=== PATIENT | male | born 1985 | race Caucasian/White ===

== ENCOUNTER 2016-09-27 11:14 | Emergency (ER) | payer SELFPAY ==
[2016-09-27] MEDS ORDERED: IBUPROFEN 800 MG TABLET PO ONE (11:42)
[2016-09-27 12:06] LABS: APPEARANCE,URINE CLEAR; BILIRUBIN,URINE NEGATIVE (NEGATIVE); GLUCOSE, URINE NEGATIVE (NEGATIVE); KETONES,URINE NEGATIVE (NEGATIVE); LEUKOCYTE ESTERASE,URINE NEGATIVE (NEGATIVE); NITRITE,URINE NEGATIVE (NEGATIVE); PROTEIN,URINE NEGATIVE (NEGATIVE); URINE SPECIFIC GRAVITY 1.014; UROBILINOGEN,URINE NEGATIVE mg/dL (<2.0)
--- NOTE | 2016-09-27 12:44 | ER Document Report ---
HPI - HPI Patient complains to provider of: right-sided back pain Onset: Other Onset/Duration: Intermittent Quality of pain: Achy Severity: Severe Pain Level: 5 Context: Patient states he has had intermittent back pain for a while, but states the right side has been bothering him more for the last 4 days. 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 Denies any other kind of injury. Denies loss of control of bowels or bladder. Associated Symptoms: None Exacerbated by: Movement Relieved by: Denies Similar symptoms previously: Yes Recently seen / treated by doctor: No Notes: It was noted when initially interviewing patient he was able to lift and raise both arms and move around on the bed without any difficulty or pain voiced when he was describing how and where his back hurts. - ROS ROS below otherwise negative: Yes Systems Reviewed and Negative: Yes All other systems reviewed and negative - CONSTITUTIONAL Constitutional: DENIES: Fever - EENT EENT: DENIES: Congestion - NEURO Neurology: DENIES: Headache - CARDIOVASCULAR Cardiovascular: DENIES: Chest pain - RESPIRATORY Respiratory: DENIES: Trouble Breathing - GASTROINTESTINAL Gastrointestinal: DENIES: Abdominal Pain - URINARY Urinary: DENIES: Dysuria - REPRODUCTIVE Reproductive: DENIES: : - MUSCULOSKELETAL Musculoskeletal: REPORTS: Back Pain - DERM Skin Color: Normal Skin Problems: None Past Medical History - General Information source: Patient - Social History Smoking Status: Current Every Day Smoker Chew tobacco use (# tins/day): No Frequency of alcohol use: Occasional Drug Abuse: None Lives with: Family Family History: Reviewed & Not Pertinent Patient has suicidal ideation: No Patient has homicidal ideation: No Pulmonary Medical History: Reports: Hx Asthma Denies: Hx Tuberculosis Renal/ Medical History: Denies: Hx Peritoneal Dialysis Skin Medical History: Reports Hx Cellulitis, Reports Hx MRSA Infectious Medical History: Reports: Hx MRSA Past Surgical History: Reports: Hx Oral Surgery, Hx Orthopedic Surgery - right shoulder - Immunizations Immunizations up to date: Yes Hx Diphtheria, Pertussis, Tetanus Vaccination: Yes - unknown last Vertical Provider Document - CONSTITUTIONAL Agree With Documented VS: Yes Exam Limitations: No Limitations General Appearance: WD/WN, No Apparent Distress - INFECTION CONTROL TRAVEL OUTSIDE OF THE [place] IN LAST 30 DAYS: No - HEENT HEENT: Atraumatic, Normocephalic - NECK Neck: Normal Inspection, Supple - RESPIRATORY Respiratory: Breath Sounds Normal, No Respiratory Distress O2 Sat by Pulse Oximetry: 100 - CARDIOVASCULAR Cardiovascular: Regular Rate, Regular Rhythm - GI/ABDOMEN Gastrointestinal: Abdomen Soft, Abdomen Non-Tender, Normal Bowel Sounds - MUSCULOSKELETAL/EXTREMETIES Musculoskeletal/Extremeties: MAEW, FROM, Tender - Mild tenderness noted to L- spine and right lumbar paraspinous muscles. Negative leg raises - NEURO Level of Consciousness: Awake, Alert, Appropriate - DERM Integumentary: Warm, Dry, No Rash Course - Vital Signs Vital signs: Temp Pulse Resp BP Pulse Ox 98.7 F 112 H 18 147/77 H 100 09/27/16 11:19 09/27/16 11:19 09/27/16 11:19 09/27/16 11:19 09/27/16 11:19 Discharge - Discharge Clinical Impression: Right-sided low back pain without sciatica Qualifiers: Chronicity: unspecified Qualified Code(s): M54.5 - Low back pain Condition: Good Disposition: HOME, SELF-CARE Instructions: Warm Packs ([facility]), Ice Packs ([facility]), Low Back Pain ([facility]) Additional Instructions: Meds as prescribed Take [id number] Motrin 3 times a day to help with pain Ice or heat packs Follow-up with your doctor if not better in 1 week Return as needed Prescriptions: Cyclobenzaprine HCl [Flexeril] 5 mg PO TID #15 tablet Tramadol HCl 50 mg PO PRN PRN #15 tablet PRN Reason:
[2016-09-27 13:07] VITALS: BP 149/58
[2016-09-27 13:19] LABS: URINE BARBITURATES SCREEN NEGATIVE; URINE METHADONE SCREEN NEGATIVE; URINE OPIATES LOW NEGATIVE; URINE PHENCYCLIDINE SCREEN NEGATIVE
== END 2016-09-27 13:07 | disposition home or self-care (01) ==
LOC: ER 11:14
DX: M54.5 Low back pain (principal); M54.9 Dorsalgia, unspecified; F17.200 Nicotine dependence, unspecified, uncomplicated
CPT/HCPCS: 72110; 80307; 81001; 99283

== ENCOUNTER 2016-10-17 07:57 | Emergency (ER) | payer SELFPAY ==
[2016-10-17 08:29] VITALS: BP 128/91
[2016-10-17] MEDS ORDERED: SULFAMETHOXAZOLE/TRIMETHOPRIM 800-160 MG TABLET PO ONE (09:38)
[2016-10-17] MEDS ORDERED: OXYCODONE-ACETAMINOPHEN 5-325 MG TABLET PO ONE (09:38)
--- NOTE | 2016-10-17 10:24 | ER Document Report ---
ED General - General Chief Complaint: Abscess Stated Complaint: BACK PAIN Time Seen by Provider: 10/17/16 08:45 TRAVEL OUTSIDE OF THE [place] IN LAST 30 DAYS: No - HPI Patient complains to provider of: abscess right scapular region Notes: Patient coming in complaining of right upper back pain due to an abscess. Patient states she has a history of MRSA in the past. Patient denies any other complaints fevers chills nausea vomiting. Patient denies any recent antibiotic use. Patient does have a looks to be an abscess in the right upper scapular region above the supraspinatus - Related Data Allergies/Adverse Reactions: hydrocodone bitartrate [From Vicodin] Allergy (Mild, Verified 09/27/16 11:17) upset stomach/hives/rash Past Medical History - Social History Smoking Status: Current Every Day Smoker Chew tobacco use (# tins/day): No Frequency of alcohol use: None Drug Abuse: None Family History: Reviewed & Not Pertinent Patient has suicidal ideation: No Patient has homicidal ideation: No Pulmonary Medical History: Reports: Hx Asthma Denies: Hx Tuberculosis Renal/ Medical History: Denies: Hx Peritoneal Dialysis Skin Medical History: Reports Hx Cellulitis, Reports Hx MRSA Infectious Medical History: Reports: Hx MRSA Past Surgical History: Reports: Hx Oral Surgery, Hx Orthopedic Surgery - right shoulder - Immunizations Immunizations up to date: Yes Hx Diphtheria, Pertussis, Tetanus Vaccination: Yes - unknown last Review of Systems - Review of Systems Constitutional: No symptoms reported EENT: No symptoms reported Cardiovascular: No symptoms reported Respiratory: No symptoms reported Gastrointestinal: No symptoms reported Genitourinary: No symptoms reported Male Genitourinary: No symptoms reported Musculoskeletal: No symptoms reported Skin: Other - Abscess Hematologic/Lymphatic: No symptoms reported Neurological/Psychological: No symptoms reported Physical Exam - Vital signs Vitals: Temp Pulse Resp BP Pulse Ox 97.6 F 98 16 128/91 H 99 10/17/16 08:02 10/17/16 08:02 10/17/16 08:02 10/17/16 08:02 10/17/16 08:02 Interpretation: Normal - General General appearance: Appears well, Alert - HEENT Head: Normocephalic, Atraumatic Eyes: Normal Pupils: PERRL - Respiratory Respiratory status: No respiratory distress Chest status: Nontender Breath sounds: Normal Chest palpation: Normal - Cardiovascular Rhythm: Regular Heart sounds: Normal auscultation Murmur: No - Abdominal Inspection: Normal Distension: No distension Bowel sounds: Normal Tenderness: Nontender Organomegaly: No organomegaly - Back Back: Normal, Nontender - Extremities General upper extremity: Normal inspection, Nontender, Normal color, Normal ROM , Normal temperature General lower extremity: Normal inspection, Nontender, Normal color, Normal ROM , Normal temperature, Normal weight bearing. No: Juancho's sign - Neurological Neuro grossly intact: Yes Cognition: Normal Orientation: AAOx4 [place] Coma Scale Eye Opening: Spontaneous [place] Coma Scale Verbal: Oriented [place] Coma Scale Motor: Obeys Commands [place] Coma Scale Total: 15 Speech: Normal Motor strength normal: LUE, RUE, LLE, RLE Sensory: Normal - Psychological Associated symptoms: Normal affect, Normal mood - Skin Skin Temperature: Warm - Patient with an abscess to the right scapula Skin Moisture: Dry Skin Color: Normal Course - Re-evaluation Re-evalutation: 10/17/16 15:19 Bedside ultrasound did confirm abscess formation I and D was performed. Patient during I and D requested that we look at his throat however upon reevaluation patient had left the ER without his discharge papers - Vital Signs Vital signs: Temp Pulse Resp BP Pulse Ox 98.4 F 98 16 128/91 H 99 10/17/16 10:47 10/17/16 08:02 10/17/16 08:02 10/17/16 08:02 10/17/16 08:02 Procedures - Incision and Drainage Right Back Type: Simple Anesthetic type: 1% Lidocaine mL's of anesthetic: 2 Blade size: 11 Incision Method: Incision made by scalpel Amount/type of drainage: 2 mL of pus Discharge - Discharge Clinical Impression: Abscess Condition: Good Disposition: HOME, SELF-CARE Instructions: Oral Narcotic Medication ([facility]), Trimethoprim-Sulfa ([facility]), Abscess ([facility]) Additional Instructions: Take antibiotics as prescribed. Follow-up with your primary care physician return to the ER symptoms worsen. Prescriptions: Oxycodone HCl/Acetaminophen [Percocet 5-325 mg Tablet] 1 - 2 tab PO Q4H PRN #15 tablet PRN Reason: Sulfamethoxazole/Trimethoprim [Bactrim Ds Tablet] 1 each PO BID #14 tablet Forms: Return to Work
== END 2016-10-17 10:47 | disposition home or self-care (01) ==
LOC: ER 07:57
PROC: 0H96XZZ Drainage of Back Skin, External Approach (ICD-10-PCS; principal; 2016-10-17)
DX: L02.212 Cutaneous abscess of back [any part, except buttock and flank] (principal); F17.200 Nicotine dependence, unspecified, uncomplicated; J45.909 Unspecified asthma, uncomplicated; Z86.14 Personal history of Methicillin resistant Staphylococcus aureus infection; Z88.5 Allergy status to narcotic agent
CPT/HCPCS: 87070; 87205; 99283

== ENCOUNTER 2017-02-15 11:48 | Emergency (ER) | payer SELFPAY ==
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
[2017-02-15 13:53] VITALS: BP 104/85
== END 2017-02-15 13:54 | disposition home or self-care (01) ==
LOC: ER 11:48
DX: K08.9 Disorder of teeth and supporting structures, unspecified (principal); L08.9 Local infection of the skin and subcutaneous tissue, unspecified; F17.210 Nicotine dependence, cigarettes, uncomplicated; Z86.14 Personal history of Methicillin resistant Staphylococcus aureus infection
CPT/HCPCS: 99283

== ENCOUNTER 2017-05-01 14:27 | Emergency (ER) | payer SELFPAY ==
[2017-05-01 14:31] VITALS: BP 143/74
[2017-05-01] MEDS ORDERED: CEPHALEXIN 500 MG CAPSULE PO ONE (15:19)
[2017-05-01] MEDS ORDERED: IBUPROFEN 800 MG TABLET PO ONE (15:20)
--- NOTE | 2017-05-01 15:20 | ER Document Report ---
HPI - HPI Patient complains to provider of: Skin complaint Pain Level: 5 Context: Patient is a 31-year-old male who presents emergency department complaining of site on his right elbow that is tender and red. Patient states he has a history of abscesses and wanted this to be evaluated. States he thought it was a bug bite originally but denies using any Neosporin, warm compresses. Denies any drainage from the site. - REPRODUCTIVE Reproductive: DENIES: : Past Medical History - Social History Smoking Status: Current Every Day Smoker Family History: Reviewed & Not Pertinent Pulmonary Medical History: Reports: Hx Asthma Denies: Hx Tuberculosis Renal/ Medical History: Denies: Hx Peritoneal Dialysis Skin Medical History: Reports Hx Cellulitis, Reports Hx MRSA Infectious Medical History: Reports: Hx MRSA Past Surgical History: Reports: Hx Oral Surgery, Hx Orthopedic Surgery - right shoulder - Immunizations Immunizations up to date: Yes Hx Diphtheria, Pertussis, Tetanus Vaccination: Yes - unknown last Vertical Provider Document - CONSTITUTIONAL Agree With Documented VS: Yes Notes: PHYSICAL EXAM GENERAL: Alert, interacts well. HEAD: Normocephalic, atraumatic. EXTREMITIES: Moves all 4 extremities spontaneously. No edema, radial and dorsalis pedis pulses 2/4 bilaterally. No cyanosis. NEUROLOGICAL: Alert and oriented x4. Normal speech. PSYCH: Normal affect, normal mood. SKIN: Warm, dry, normal turgor. Right elbow radial aspect shows evidence of 1/ 2 cm wide erythematous area with central scab with underlying induration without fluctuance but is mobile without active draining - INFECTION CONTROL TRAVEL OUTSIDE OF THE [place] IN LAST 30 DAYS: No - RESPIRATORY O2 Sat by Pulse Oximetry: 100 Course - Re-evaluation Re-evalutation: 05/01/17 15:20 patient is a 31-year-old male who is hemodynamically stable, no acute distress and afebrile. Presentation is consistent with cellulitis. Discussed with patient to utilize warm compresses as much as possible to take the antibiotics as prescribed otherwise can take [id number] Tylenol and Motrin for his pain. No concern at this time for septic joint given normal range of motion of the elbow that is nontender to palpation discussed with patient indications to return to the emergency department otherwise stable for discharge home - Vital Signs Vital signs: Temp Pulse Resp BP Pulse Ox 98.6 F 80 20 143/74 H 100 05/01/17 14:31 05/01/17 14:31 05/01/17 14:31 05/01/17 14:31 05/01/17 14:31 Discharge - Discharge Clinical Impression: Cellulitis Qualifiers: Site of cellulitis: extremity Site of cellulitis of extremity: upper extremity Laterality: right Qualified Code(s): L03.113 - Cellulitis of right upper limb Condition: Good Disposition: HOME, SELF-CARE Instructions: Cellulitis ([facility]) Prescriptions: Cephalexin Monohydrate [Keflex 500 mg Capsule] 500 mg PO Q6H 5 Days capsule Referrals: [facility] [NO LOCAL MD] - Follow up as needed
== END 2017-05-01 15:32 | disposition home or self-care (01) ==
LOC: ER 14:27
DX: L03.113 Cellulitis of right upper limb (principal)
CPT/HCPCS: 99283

== ENCOUNTER 2017-06-09 19:27 | Emergency (ER) | payer SELFPAY ==
[2017-06-09 19:51] VITALS: BP 111/71
[2017-06-09] MEDS ORDERED: CLINDAMYCIN HCL 150 MG CAPSULE PO ONE (22:37)
[2017-06-09] MEDS ORDERED: SULFAMETHOXAZOLE/TRIMETHOPRIM 800-160 MG TABLET PO ONE (22:38)
--- NOTE | 2017-06-09 22:42 | ER Document Report ---
ED General - General Chief Complaint: Abscess Stated Complaint: PAIN IN UPPER ARM Time Seen by Provider: 06/09/17 22:02 Notes: Patient is 31-year-old male with a history of recurrent cellulitis and abscesses. Denies IV drug abuse. She denies fevers. Says he has an area was right elbow that is red and swollen is concerned he may have developed another abscess. This been there for just over 24 hours. He denies any other complaints at this time. TRAVEL OUTSIDE OF THE [place] IN LAST 30 DAYS: No - Related Data Allergies/Adverse Reactions: hydrocodone bitartrate [From Vicodin] Allergy (Mild, Verified 05/01/17 14:30) upset stomach/hives/rash Past Medical History - Social History Smoking Status: Unknown if Ever Smoked Frequency of alcohol use: None Drug Abuse: None Family History: Reviewed & Not Pertinent Patient has suicidal ideation: No Patient has homicidal ideation: No Pulmonary Medical History: Reports: Hx Asthma Denies: Hx Tuberculosis Renal/ Medical History: Denies: Hx Peritoneal Dialysis Skin Medical History: Reports Hx Cellulitis, Reports Hx MRSA Infectious Medical History: Reports: Hx MRSA Past Surgical History: Reports: Hx Oral Surgery, Hx Orthopedic Surgery - right shoulder - Immunizations Immunizations up to date: Yes Hx Diphtheria, Pertussis, Tetanus Vaccination: Yes - unknown last Review of Systems - Review of Systems Notes: My Normal Review Basic REVIEW OF SYSTEMS: CONSTITUTIONAL : Denies fever, chills, or sweats. Denies recent illness. RESPIRATORY: Denies cough, cold, or chest congestion. Denies shortness of breath, difficulty breathing, or wheezing. GASTROINTESTINAL: Denies abdominal pain. Denies nausea, vomiting, or diarrhea. Denies constipation. Last BM: MUSCULOSKELETAL: Swelling and redness over right elbow. SKIN: Denies rash or skin lesions. NEUROLOGICAL: Denies altered mental status or loss of consciousness. Denies headache. Denies weakness or paralysis or loss of use of either side. Denies problems with gait or speech. Denies sensory or motor loss. ALL OTHER SYSTEMS REVIEWED AND NEGATIVE. Physical Exam - Vital signs Vitals: Temp Pulse Resp BP Pulse Ox 98.3 F 90 18 111/71 98 06/09/17 19:27 06/09/17 19:27 06/09/17 19:27 06/09/17 19:27 01/02/18 19:27 - Notes Notes: General Appearance: Well nourished, alert, cooperative, no acute distress, mild obvious discomfort. Vitals: reviewed, See vital signs table. Head: no swelling or tenderness to the head Eyes: PERRL, EOMI, Conjuctiva clear Abdomen: Normal BS, soft, No rigidity, No abdominal tenderness, No guarding, no rebound, no abdominal masses, no organomegaly Extremities: strength 5/5 in all extremities, good pulses in all extremities, range of motion of the right elbow without any stiffness or difficulty. Patient does have a area of redness over the right elbow consistent with a cellulitis with some swelling over the bursa consistent and associated bursitis. On exam site consistent with that of a abscess. I did do a bedside ultrasound was confirmed is not a fluid collection to drain. There is none seen on bedside ultrasound. With that of a Skin: warm, dry, appropriate color, no rash Neuro: speech clear, oriented x 3, normal affect, responds appropriately to questions. Course - Re-evaluation Re-evalutation: 06/10/17 05:39 I informed the patient that we will will treat associated infection. I informed him that currently there is an abscess but this does not mean that he cannot develop on later. The infection appears superficial and does not appear to affect the joint itself. Is full range of motion of the joint without pain. There is some swelling near the bursa. He may have an associated bursitis as well. I informed him that even though he is on antibiotics he must return to ER immediately if he has increased swelling or redness or fevers. I informed him the still possible he can develop a abscess in the future despite being on antibiotics. He is understanding of this. Also informed him should follow-up with the doctor in 2-3 days for close reevaluation. Patient agrees with plan will be discharged home. Dictation of this chart was performed using voice recognition software; therefore, there may be some unintended grammatical errors. - Vital Signs Vital signs: Temp Pulse Resp BP Pulse Ox 98.3 F 90 18 111/71 98 06/09/17 19:27 06/09/17 19:27 06/09/17 19:27 06/09/17 19:27 06/09/17 19:27 Discharge - Discharge Clinical Impression: Bursitis Qualifiers: Bursitis location: elbow Elbow bursitis location: unspecified Laterality: right Qualified Code(s): M70.31 - Other bursitis of elbow, right elbow Cellulitis Qualifiers: Site of cellulitis: extremity Site of cellulitis of extremity: upper extremity Laterality: right Qualified Code(s): L03.113 - Cellulitis of right upper limb Condition: Good Disposition: HOME, SELF-CARE Additional Instructions: Currently I do not see evidence of an abscess on ultrasound. I suspect you have a cellulitis with an underlying bursitis. Treatment is Motrin and antibiotics. Please follow up with your doctor or the ER in 2 days for reevaluation. Please return to the ER if you have spreading redness, fevers, or increasing swelling. Prescriptions: Clindamycin HCl 300 mg PO ASDIR #56 capsule Oxycodone HCl/Acetaminophen [Percocet 5-325 mg Tablet] 1 tab PO Q4H PRN #8 tablet PRN Reason: Sulfamethoxazole/Trimethoprim [Bactrim Ds Tablet] 1 each PO BID #14 tablet
== END 2017-06-09 23:03 | disposition home or self-care (01) ==
LOC: ER 19:27
DX: M70.31 Other bursitis of elbow, right elbow (principal); L03.113 Cellulitis of right upper limb; Z86.14 Personal history of Methicillin resistant Staphylococcus aureus infection
CPT/HCPCS: 99283

== ENCOUNTER 2017-08-27 08:17 | Emergency (ER) | payer SELFPAY ==
[2017-08-27] MEDS ORDERED: SULFAMETHOXAZOLE/TRIMETHOPRIM 800-160 MG TABLET PO ONE (09:20)
[2017-08-27] MEDS ORDERED: CEPHALEXIN 500 MG CAPSULE PO ONE (09:20)
--- NOTE | 2017-08-27 09:28 | ER Document Report ---
ED Skin Rash/Insect Bite/Abscs - General Chief Complaint: Abscess Stated Complaint: BACK PAIN Time Seen by Provider: 08/27/17 08:52 Mode of Arrival: Ambulatory Information source: Patient Notes: 31-year-old male presents to ED for complaint of abscesses to the back. He states that the most painful one is between the shoulder blades. He also has one on both sides of the upper back and abdomen. He reports he has been getting some liquid out of many of the abscess. He states he has a history of MRSA. He is alert oriented respirations even and unlabored. Patient is in no acute distress. Patient is able to ambulate with the even steady gait. TRAVEL OUTSIDE OF THE [place] IN LAST 30 DAYS: No - HPI Patient complains to provider of: Tender/swollen area Onset: Other - Several weeks the one between his shoulder blades for several days old Onset/Duration: Intermittent Quality of pain: Sharp Severity: Moderate Pain Level: 3 Skin Character: Abscess, Other - Double scratch wounds that are scabbed over some have mild redness around most of them are just scabbed over wounds the one between the shoulder blade is a very minimal abscess Quality of rash: Painful Identify cause: Yes - Patient has acne that he scratches causing scabbed over wounds that sometim Exacerbated by: Walking Relieved by: Denies Similar symptoms previously: Yes Recently seen / treated by doctor: No - Related Data Allergies/Adverse Reactions: hydrocodone bitartrate [From Vicodin] Allergy (Mild, Verified 05/01/17 14:30) upset stomach/hives/rash Past Medical History - General Information source: Patient - Social History Smoking Status: Current Every Day Smoker Cigarette use (# per day): Yes - Half pack a day Chew tobacco use (# tins/day): No Smoking Education Provided: Yes - 4 minutes Frequency of alcohol use: Occasional Drug Abuse: None Occupation: [employer] Lives with: Family Family History: Reviewed & Not Pertinent Patient has suicidal ideation: No Patient has homicidal ideation: No - Past Medical History Cardiac Medical History: Reports: None Pulmonary Medical History: Reports: Hx Asthma EENT Medical History: Reports: None Neurological Medical History: Reports: None Endocrine Medical History: Reports: None Renal/ Medical History: Reports: None Malignancy Medical History: Reports None GI Medical History: Reports: None Musculoskeltal Medical History: Reports Hx Musculoskeletal Trauma - Facial bone fractures Skin Medical History: Reports Hx Cellulitis, Reports Hx MRSA Psychiatric Medical History: Reports: None Traumatic Medical History: Reports: Hx Fractures - Facial bones Infectious Medical History: Reports: Hx MRSA Past Surgical History: Reports: Hx Oral Surgery, Hx Orthopedic Surgery - right shoulder - Immunizations Immunizations up to date: Yes Hx Diphtheria, Pertussis, Tetanus Vaccination: Yes - unknown last Review of Systems - Review of Systems Constitutional: No symptoms reported EENT: No symptoms reported Cardiovascular: No symptoms reported Respiratory: No symptoms reported Gastrointestinal: No symptoms reported Genitourinary: No symptoms reported Male Genitourinary: No symptoms reported Musculoskeletal: No symptoms reported Skin: Other - Multiple open and scabbed over wounds to the back and abdomen with 1 abscess between the shoulder blades Hematologic/Lymphatic: No symptoms reported Neurological/Psychological: No symptoms reported -: Yes All other systems reviewed and negative Physical Exam - Vital signs Vitals: Temp Pulse Resp BP Pulse Ox 97.6 F 90 18 129/74 H 100 08/27/17 08:35 08/27/17 08:35 08/27/17 08:35 08/27/17 08:35 08/27/17 08:35 Interpretation: Normal - General General appearance: Appears well, Alert - HEENT Head: Normocephalic, Atraumatic Eyes: Normal Pupils: PERRL - Respiratory Respiratory status: No respiratory distress Chest status: Nontender Breath sounds: Normal Chest palpation: Normal - Cardiovascular Rhythm: Regular Heart sounds: Normal auscultation Murmur: No - Abdominal Inspection: Normal Distension: No distension Bowel sounds: Normal Tenderness: Nontender Organomegaly: No organomegaly - Back Back: Normal, Nontender - Extremities General upper extremity: Normal inspection, Nontender, Normal color, Normal ROM , Normal temperature General lower extremity: Normal inspection, Nontender, Normal color, Normal ROM , Normal temperature, Normal weight bearing. No: Juancho's sign - Neurological Neuro grossly intact: Yes Cognition: Normal Orientation: AAOx4 Lexis Coma Scale Eye Opening: Spontaneous [place] Coma Scale Verbal: Oriented [place] Coma Scale Motor: Obeys Commands [place] Coma Scale Total: 15 Speech: Normal Motor strength normal: LUE, RUE, LLE, RLE Sensory: Normal - Psychological Associated symptoms: Normal affect, Normal mood - Skin Skin Temperature: Warm Skin Moisture: Dry Skin Color: Normal Skin irregularity: Abscess - 1 abscess between his shoulder blades very small Location of irregularity: Back, Other - Multiple open and scabbed over wounds to the abdomen back where he has scratched acne. Patient has a history of MRSA Irregularity with: Swelling, Tenderness, Warmth Course - Re-evaluation Re-evalutation: 08/27/17 21:02 Patient was cleaned well with Betadine swabs then the abscess was opened with a 18-gauge needle wound culture taken of the abscess and patient treated with Bactrim and Keflex. Patient was discharged home with prescriptions for Bactrim and Keflex. Patient given instructions to clean well with soap and water and apply bacitracin to all of his open wounds. - Vital Signs Vital signs: Temp Pulse Resp BP Pulse Ox 98.4 F 100 20 108/70 97 08/27/17 09:36 08/27/17 09:36 08/27/17 09:36 08/27/17 09:36 08/27/17 09:36 Procedures - Incision and Drainage Upper Back Time completed: 09:00 Type: Simple Anesthetic type: Other - none mL's of anesthetic: 0 Blade size: Other - 18-gauge needle I&D procedure: Betadine prep applied Incision Method: Incision made with needle Amount/type of drainage: Small amount of purulent thick drainage Discharge - Discharge Clinical Impression: Abscess of upper back excluding scapular region Condition: Stable Disposition: HOME, SELF-CARE Instructions: Family Physicians / Practices Additional Instructions: ABSCESS: You have an abscess (boil). This a pus-forming infection, usually due to staph. Some boils may be left to drain on their own, but most require lancing. From the time the tender lump first appears, it may be three or four days before the abscess is ready to pedro. Local heat and rest help at this stage of treatment. An antibiotic may prevent spread of the infection. Once the abscess is opened, packing may be placed into it. This is done so pus is not sealed inside by premature closure of the cavity. The packing will be removed at your follow-up visit or you may be advised to remove it yourself at home. Sometimes this packing must be replaced a few times during healing. The wound will heal with surprisingly little scar. Depending on the size and location of an abscess, healing can take one to four weeks. You may shower and wash the area around the incision site two or three times a day. Antibiotics may be prescribed, but are usually not necessary after an abscess has been drained. If you develop fever, chills, worsening pain, or increasing swelling in the area, call the doctor or return immediately. POST INCISION AND DRAINAGE: You have had an incision made to allow drainage of an abscess. The incision must remain open so that pus and debris can drain from the wound. If the abscess cavity is large, packing is placed. This keeps the tissues from collapsing and trapping pus inside, while the body shrinks the cavity. The packing may need to be replaced every day or two. The physician will instruct you on the packing. Keep a bulky dressing over the area. Replace it if it becomes saturated with blood or pus. Do not disturb the packing (if present). You may shower and cleanse the area with gentle soap and warm water two or three times a day. Local warmth may be soothing, and may promote faster healing. Return if you develop high fever or chills, or if you note spreading redness, increasing swelling, or increasing tenderness. CEPHALEXIN: The antibiotic you've been prescribed is a member of the cephalosporin class. This type of antibiotic covers a wide variety of infections, including those of the skin, lungs, and urinary tract. It's useful for staph infections. This antibiotic is slightly similar to the penicillin family. In rare cases , a person who is allergic to penicillin will also be allergic to this medication. If you have had a severe allergic reaction to penicillin, and have not taken this antibiotic since that time, notify your doctor. Antibiotics which cover many germs ("broad spectrum" antibiotics) are more likely to cause diarrhea or "yeast" infections. Women prone to vaginal yeast problems may suffer an attack after taking this antibiotic. In infants, oral thrush (white spots "stuck" on the cheek) or yeast diaper rash may result. See your doctor if these problems occur. Call at once if you develop itching, hives , shortness of breath, or lightheadedness. TRIMETHOPRIM-SULFA: You have been given a prescription for trimethoprim-sulfa (TMS, Septra, Bactrim). This is a combination antibiotic of the sulfa class, often used for urinary tract infections, middle ear infections, bronchitis, shigella intestinal infection, and Pneumocystis pneumonia. TMS is usually well-tolerated. Occasional side effects include nausea and decreased appetite. Septra is not recommended for infants less than two months of age. Do not take this medication if you have experienced severe side effects or allergy to sulfa medicine. You should stop this medicine at once and contact your physician if you develop any rash, joint pain, shortness of breath, bruising, or jaundice ( yellow color in the skin), or if you develop any other new or unusual symptoms. Clean all open sores several times a day with soap and water rinse well but bacitracin on the areas. FOLLOW-UP CARE: Most simple abscesses will not require a follow up visit. If you had packing placed in the abscess, remove it as instructed by the physician. If you have been referred to a physician for follow-up care, call the physicians office for an appointment as you were instructed or within the next two days. If you experience worsening or a significant change in your symptoms, return to the Emergency Department at any time for re-evaluation. Prescriptions: Cephalexin Monohydrate [Keflex 500 mg Capsule] 500 mg PO Q6H 5 Days capsule Sulfamethoxazole/Trimethoprim [Bactrim Ds Tablet] 1 each PO BID #14 tablet Forms: Elevated Blood Pressure, Smoking Cessation Education
[2017-08-27 09:38] VITALS: BP 108/70
== END 2017-08-27 09:38 | disposition home or self-care (01) ==
LOC: ER 08:17
PROC: 0H96XZZ Drainage of Back Skin, External Approach (ICD-10-PCS; principal; 2017-08-27)
DX: L02.212 Cutaneous abscess of back [any part, except buttock and flank] (principal); F17.210 Nicotine dependence, cigarettes, uncomplicated; Z86.14 Personal history of Methicillin resistant Staphylococcus aureus infection; Z88.6 Allergy status to analgesic agent
CPT/HCPCS: 87070; 87075; 87077; 87186; 87205; 99283; 99406

== ENCOUNTER 2017-10-20 08:29 | Emergency (ER) | payer SELFPAY ==
[2017-10-20] MEDS ORDERED: CYCLOBENZAPRINE HCL 10 MG TABLET PO ONE (09:05)
[2017-10-20] MEDS ORDERED: OXYCODONE-ACETAMINOPHEN 5-325 MG TABLET PO ONE (09:06)
--- NOTE | 2017-10-20 09:59 | RADIOLOGY REPORT (SQ) ---
EXAM DESCRIPTION: L SPINE WHOLE COMPLETED DATE/TIME: 10/20/2017 9:45 am REASON FOR STUDY: low back injury, pain COMPARISON: 09/27/2016 NUMBER OF VIEWS: Five views including obliques. TECHNIQUE: AP, lateral, oblique, and sacral radiographic images acquired of the lumbar spine. LIMITATIONS: None. FINDINGS: MINERALIZATION: Normal. SEGMENTATION: Normal. No transitional anatomy. ALIGNMENT: Normal. VERTEBRAE: Maintained height. No fracture or worrisome bone lesion. DISCS: Preserved height. No significant osteophytes or end plate irregularity. POSTERIOR ELEMENTS: Pedicles and facets are intact. No pars defect or posterior arch defects. HARDWARE: None in the spine. PARASPINAL SOFT TISSUES: Normal. PELVIS: Intact as visualized. No fractures or worrisome bone lesions. SI joints intact. OTHER: No other significant finding. IMPRESSION: NORMAL 5 VIEW LUMBAR SPINE. TECHNICAL DOCUMENTATION: JOB ID: [id number] [employer]- All Rights Reserved Reading location - IP/workstation name: [email or web address]
--- NOTE | 2017-10-20 10:12 | ER Document Report ---
ED General Pain - General Chief Complaint: Back Injury Stated Complaint: BACK PAIN Time Seen by Provider: 10/20/17 08:55 Mode of Arrival: Ambulatory Information source: Patient Notes: Patient is a 31-year-old male who presents to the ER today for low back pain. Patient states that he was lifting 5 gallon buckets filled with dirt yesterday and felt multiple pops in his low back, states that the pain is worse on the right side. He denies any numbness or tingling, loss of bladder or bowel function, radiation down either of the legs. He denies any chronic back issues although states that he has hurt his back before no x-rays were ever taken. TRAVEL OUTSIDE OF THE [place] IN LAST 30 DAYS: No - Related Data Allergies/Adverse Reactions: hydrocodone bitartrate [From Vicodin] Allergy (Mild, Verified 05/01/17 14:30) upset stomach/hives/rash Past Medical History - General Information source: Patient - Social History Smoking Status: Current Every Day Smoker Chew tobacco use (# tins/day): No Frequency of alcohol use: Social Drug Abuse: None Family History: Reviewed & Not Pertinent Patient has suicidal ideation: No Patient has homicidal ideation: No Pulmonary Medical History: Reports: Hx Asthma Denies: Hx Tuberculosis Renal/ Medical History: Reports: Hx Peritoneal Dialysis Musculoskeltal Medical History: Reports Hx Musculoskeletal Trauma - Facial bone fractures Skin Medical History: Reports Hx Cellulitis, Reports Hx MRSA Traumatic Medical History: Reports: Hx Fractures - Facial bones Infectious Medical History: Reports: Hx MRSA Past Surgical History: Reports: Hx Oral Surgery, Hx Orthopedic Surgery - right shoulder - Immunizations Immunizations up to date: Yes Hx Diphtheria, Pertussis, Tetanus Vaccination: Yes - unknown last Review of Systems - Review of Systems Constitutional: No symptoms reported EENT: No symptoms reported Cardiovascular: No symptoms reported Respiratory: No symptoms reported Gastrointestinal: No symptoms reported Genitourinary: No symptoms reported Male Genitourinary: No symptoms reported Musculoskeletal: See HPI Skin: No symptoms reported Hematologic/Lymphatic: No symptoms reported Neurological/Psychological: No symptoms reported Physical Exam - Vital signs Vitals: Temp Pulse Resp BP Pulse Ox 97.6 F 90 18 129/81 H 100 10/20/17 08:34 10/20/17 08:34 10/20/17 08:34 10/20/17 08:34 10/20/17 08:34 - Notes Notes: PHYSICAL EXAMINATION: GENERAL: Lying on stomach, obviously uncomfortable, but in no acute distress. HEAD: Atraumatic, normocephalic. EYES: Pupils equal round and reactive to light, extraocular movements intact, sclera anicteric, conjunctiva are normal. NECK: Normal range of motion, supple without lymphadenopathy LUNGS: CTAB and equal. No wheezes rales or rhonchi. HEART: Regular rate and rhythm without murmurs BACK: Lumbar vertebral tenderness, decreased range of motion secondary to pain GI/: no CVA tenderness EXTREMITIES: Normal range of motion, no pitting edema. No cyanosis. NEUROLOGICAL: Cranial nerves grossly intact. Normal sensory/motor exams. PSYCH: Normal mood, normal affect. SKIN: Warm, Dry, normal turgor, no rashes or lesions noted Course - Re-evaluation Re-evalutation: 10/20/17 10:10 Lumbar x-ray negative for any acute pathology, we will send patient home on muscle relaxer and anti-inflammatory. - Vital Signs Vital signs: Temp Pulse Resp BP Pulse Ox 97.6 F 90 18 129/81 H 100 10/20/17 08:34 10/20/17 08:34 10/20/17 08:34 10/20/17 08:34 10/20/17 08:34 Discharge - Discharge Clinical Impression: Low back pain Qualifiers: Chronicity: acute Back pain laterality: right Sciatica presence: without sciatica Qualified Code(s): M54.5 - Low back pain Condition: Stable Disposition: HOME, SELF-CARE Additional Instructions: Return immediately for any new or worsening symptoms. Follow up with primary care provider, call tomorrow to make followup appointment. Prescriptions: Ibuprofen [Motrin 800 mg Tablet] 800 mg PO Q8H PRN #30 tab PRN Reason: Methocarbamol [Robaxin] 500 mg PO QID PRN #30 tablet PRN Reason: Forms: Return to Work
[2017-10-20 11:17] VITALS: BP 118/75
== END 2017-10-20 11:17 | disposition home or self-care (01) ==
LOC: ER 08:29
DX: M54.5 Low back pain (principal); Z86.14 Personal history of Methicillin resistant Staphylococcus aureus infection
CPT/HCPCS: 72110; 99283

== ENCOUNTER 2017-11-12 10:45 | Emergency (ER) | payer SELFPAY ==
--- NOTE | 2017-11-12 11:01 | ER Document Report ---
HPI - HPI Patient complains to provider of: abscess Onset: Last week Onset/Duration: Persistent, Worse Pain Level: 5 Context: 31 yo male with left axilla abscess since last week. No fever. Associated Symptoms: None Exacerbated by: Movement Relieved by: Denies - ROS ROS below otherwise negative: Yes Systems Reviewed and Negative: Yes All other systems reviewed and negative - REPRODUCTIVE Reproductive: DENIES: : Past Medical History - General Information source: Patient - Social History Smoking Status: Current Every Day Smoker Frequency of alcohol use: Occasional Drug Abuse: None Lives with: Spouse/Significant other Family History: Reviewed & Not Pertinent Pulmonary Medical History: Reports: Hx Asthma Denies: Hx Tuberculosis Renal/ Medical History: Reports: Hx Peritoneal Dialysis Musculoskeltal Medical History: Reports Hx Musculoskeletal Trauma - Facial bone fractures Skin Medical History: Reports Hx Cellulitis, Reports Hx MRSA Traumatic Medical History: Reports: Hx Fractures - Facial bones Infectious Medical History: Reports: Hx MRSA Past Surgical History: Reports: Hx Oral Surgery, Hx Orthopedic Surgery - right shoulder - Immunizations Immunizations up to date: Yes Hx Diphtheria, Pertussis, Tetanus Vaccination: Yes - unknown last Vertical Provider Document - CONSTITUTIONAL Agree With Documented VS: Yes Exam Limitations: No Limitations General Appearance: No Apparent Distress - INFECTION CONTROL TRAVEL OUTSIDE OF THE [place] IN LAST 30 DAYS: No - HEENT HEENT: Normocephalic - NECK Neck: Supple - MUSCULOSKELETAL/EXTREMETIES Musculoskeletal/Extremeties: MAEW - NEURO Level of Consciousness: Awake - DERM Integumentary: Abscess - left axilla Procedures - Incision and Drainage Left Arm Time completed: 12:58 Type: Simple Anesthetic type: 1% Lidocaine mL's of anesthetic: 3 Blade size: 11 I&D procedure: Betadine prep applied, Sterile dressing applied Incision Method: Incision made by scalpel Amount/type of drainage: moderate pus Discharge - Discharge Clinical Impression: Left axilla abscess I&D Condition: Good Disposition: HOME, SELF-CARE Instructions: Abscess ([facility]), Acetaminophen, Bactroban Ointment ([facility]), Ibuprofen (General) ([facility]), Warm Packs ([facility]) Additional Instructions: warm compress septra to er if increased pain or size Bactroban small amount in each nostril twice a day for 5 days Bactroban can also be used on smaller lesions before they get this large Prescriptions: Sulfamethoxazole/Trimethoprim [Sulfamethoxazole-Tmp Ds Tablet] 1 each PO BID # 14 tablet Tramadol HCl [Ultram 50 mg Tablet] 50 mg PO ASDIR PRN #10 tablet PRN Reason: Forms: Return to Work
[2017-11-12] MEDS ORDERED: LIDOCAINE 4%/TETRACAINE 0.5%/EPI 0.18% 5 ML TOPICAL SOLN TOP ONE (12:02)
[2017-11-12] MEDS ORDERED: IBUPROFEN 800 MG TABLET PO ONE (12:02)
[2017-11-12] MEDS ORDERED: SULFAMETHOXAZOLE/TRIMETHOPRIM 800-160 MG TABLET PO ONE (12:03)
[2017-11-12] MEDS ORDERED: MUPIROCIN 2% OINTMENT 22 GM TP ONE (12:03)
[2017-11-12 13:01] VITALS: BP 124/56
== END 2017-11-12 13:10 | disposition home or self-care (01) ==
LOC: ER 10:45
PROC: 0H9CXZZ Drainage of Left Upper Arm Skin, External Approach (ICD-10-PCS; principal; 2017-11-12)
DX: L02.412 Cutaneous abscess of left axilla (principal); F17.200 Nicotine dependence, unspecified, uncomplicated; J45.909 Unspecified asthma, uncomplicated
CPT/HCPCS: 99283; 10060; J3490 ×2

== ENCOUNTER 2017-12-20 15:18 | Emergency (ER) | payer SELFPAY ==
[2017-12-20 15:41] VITALS: BP 135/84
--- NOTE | 2017-12-20 16:07 | ER Document Report ---
ED Skin Rash/Insect Bite/Abscs - General Chief Complaint: Back Pain Stated Complaint: BACK PAIN Time Seen by Provider: 12/20/17 15:43 Mode of Arrival: Ambulatory Information source: Patient Notes: Patient is a 32-year-old male with a history of MRSA who presents to the ER today for an abscess to his right arm 3 days. Patient states it has been leaking pus. He denies any fevers or chills. Patient also complains of some left lower back pain without radiation anywhere. 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 Patient denies any numbness or tingling, loss of bladder or bowel function. TRAVEL OUTSIDE OF THE [place] IN LAST 30 DAYS: No - Related Data Allergies/Adverse Reactions: hydrocodone bitartrate [From Vicodin] Allergy (Mild, Verified 11/28/17 09:38) upset stomach/hives/rash Past Medical History - General Information source: Patient - Social History Smoking Status: Unknown if Ever Smoked Family History: Reviewed & Not Pertinent Pulmonary Medical History: Reports: Hx Asthma Denies: Hx Tuberculosis Renal/ Medical History: Reports: Hx Peritoneal Dialysis Musculoskeletal Medical History: Reports Hx Musculoskeletal Trauma - Facial bone fractures Skin Medical History: Reports Hx Cellulitis, Reports Hx MRSA Traumatic Medical History: Reports: Hx Fractures - Facial bones Infectious Medical History: Reports: Hx MRSA Past Surgical History: Reports: Hx Oral Surgery, Hx Orthopedic Surgery - right shoulder - Immunizations Immunizations up to date: Yes Hx Diphtheria, Pertussis, Tetanus Vaccination: Yes - unknown last Review of Systems - Review of Systems Constitutional: No symptoms reported EENT: No symptoms reported Cardiovascular: No symptoms reported Respiratory: No symptoms reported Gastrointestinal: No symptoms reported Genitourinary: No symptoms reported Male Genitourinary: No symptoms reported Musculoskeletal: See HPI Skin: See HPI Hematologic/Lymphatic: No symptoms reported Neurological/Psychological: No symptoms reported Physical Exam - Vital signs Vitals: Temp Pulse Resp BP Pulse Ox 97.5 F 95 20 135/84 H 99 12/20/17 15:39 12/20/17 15:39 12/20/17 15:39 12/20/17 15:39 12/20/17 15:39 - Notes Notes: PHYSICAL EXAMINATION: GENERAL: Well-appearing and in no acute distress. HEAD: Atraumatic, normocephalic. EYES: Pupils equal round and reactive to light, extraocular movements intact, sclera anicteric, conjunctiva are normal. NECK: Normal range of motion, supple without lymphadenopathy LUNGS: CTAB and equal. No wheezes rales or rhonchi. HEART: Regular rate and rhythm without murmurs ABDOMEN: Soft, no tenderness. No guarding, no rebound BACK: Left SI joint tenderness, no vertebral tenderness, normal ROM GI/: no CVA tenderness EXTREMITIES: Normal range of motion, no pitting edema. No cyanosis. NEUROLOGICAL: Cranial nerves grossly intact. Normal sensory/motor exams. PSYCH: Normal mood, normal affect. SKIN: Warm, Dry, normal turgor, approximately 1 cm of erythema with open sore draining thick white pus to the right upper arm Course - Re-evaluation Re-evalutation: 12/20/17 16:05 Patient will be started on Bactrim for his abscess although it does not appear like I need to incise and drain it today as it is actively draining with a large hole in the center. Patient will be given muscle relaxers for his low back pain. I have advised that he take Motrin for pain. - Vital Signs Vital signs: Temp Pulse Resp BP Pulse Ox 97.5 F 95 20 135/84 H 99 12/20/17 15:39 12/20/17 15:39 12/20/17 15:39 12/20/17 15:39 12/20/17 15:39 Discharge - Discharge Clinical Impression: Abscess of right arm, Sciatica, left side Condition: Stable Disposition: HOME, SELF-CARE Additional Instructions: Return immediately for any new or worsening symptoms. Follow up with primary care provider, call tomorrow to make followup appointment. Prescriptions: Cyclobenzaprine HCl [Flexeril 10 mg Tablet] 10 mg PO TIDP PRN #15 tab PRN Reason: Ibuprofen [Motrin 800 mg Tablet] 800 mg PO Q8H PRN #30 tab PRN Reason: Sulfamethoxazole/Trimethoprim [Bactrim Ds Tablet] 1 each PO BID #20 tablet
== END 2017-12-20 16:34 | disposition home or self-care (01) ==
LOC: ER 15:18
DX: L02.413 Cutaneous abscess of right upper limb (principal); M54.32 Sciatica, left side; M54.5 Low back pain; J45.909 Unspecified asthma, uncomplicated
CPT/HCPCS: 99283

== ENCOUNTER 2018-03-14 16:16 | Emergency (ER) | payer SELFPAY ==
[2018-03-14 16:23] VITALS: BP 113/71
[2018-03-14] MEDS ORDERED: LIDOCAINE 1% INJ-PF (10 MG/ML) 30 ML SDV INJ ONE (17:03)
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
[2018-03-14] MEDS ORDERED: KETOROLAC TROMETHAMINE 60 MG/2 ML SDV IM ONE (17:42)
[2018-03-14] MEDS ORDERED: NORMAL SALINE 1000 ML 1,000 ML IV ONE (18:10)
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
== END 2018-03-14 19:26 | disposition home or self-care (01) ==
LOC: ER 16:16
PROC: 0H98XZZ Drainage of Buttock Skin, External Approach (ICD-10-PCS; principal; 2018-03-14)
DX: L02.31 Cutaneous abscess of buttock (principal); L02.01 Cutaneous abscess of face; F17.210 Nicotine dependence, cigarettes, uncomplicated; Z88.6 Allergy status to analgesic agent; Z86.14 Personal history of Methicillin resistant Staphylococcus aureus infection
CPT/HCPCS: 99284; 96372; 70486; 10060; J1885

== ENCOUNTER 2018-03-19 07:18 | Emergency (ER) | payer SELFPAY ==
--- NOTE | 2018-03-19 08:26 | ER Document Report ---
HPI - HPI Patient complains to provider of: abscess Onset: Other Onset/Duration: Gradual - Several days Pain Level: 5 Context: 32-year-old male with a history of abscesses is complaining of one over the right lateral upper arm. It is crusted over and no longer draining but it is still getting larger and hurts. He recently had an incision on his buttocks which is getting better. He has used Bactroban in his nose in the past to try to reduce the number of these. Denies IV drug use. no Fever. Associated Symptoms: None Exacerbated by: Movement Relieved by: Denies Similar symptoms previously: Yes Recently seen / treated by doctor: No - ROS ROS below otherwise negative: Yes Systems Reviewed and Negative: Yes All other systems reviewed and negative - CONSTITUTIONAL Constitutional: REPORTS: Chills. DENIES: Fever - EENT EENT: DENIES: Sore Throat, Ear Pain, Eye problems - CARDIOVASCULAR Cardiovascular: DENIES: Chest pain - RESPIRATORY Respiratory: DENIES: Trouble Breathing, Coughing - URINARY Urinary: DENIES: Dysuria, Urgency, Frequency - REPRODUCTIVE Reproductive: DENIES: : Past Medical History - General Information source: Patient - Social History Smoking Status: Current Every Day Smoker Chew tobacco use (# tins/day): No Frequency of alcohol use: Occasional Drug Abuse: None Lives with: Family Family History: Reviewed & Not Pertinent Patient has suicidal ideation: No Patient has homicidal ideation: No Pulmonary Medical History: Reports: Hx Asthma Denies: Hx Tuberculosis Renal/ Medical History: Denies: Hx Peritoneal Dialysis Musculoskeletal Medical History: Reports Hx Musculoskeletal Trauma - Facial bone fractures Skin Medical History: Reports Hx Cellulitis, Reports Hx MRSA Traumatic Medical History: Reports: Hx Fractures - Facial bones Infectious Medical History: Reports: Hx MRSA Past Surgical History: Reports: Hx Oral Surgery, Hx Orthopedic Surgery - right shoulder - Immunizations Immunizations up to date: Yes Hx Diphtheria, Pertussis, Tetanus Vaccination: Yes - unknown last Vertical Provider Document - CONSTITUTIONAL Agree With Documented VS: Yes Exam Limitations: No Limitations - INFECTION CONTROL TRAVEL OUTSIDE OF THE [place] IN LAST 30 DAYS: No - MUSCULOSKELETAL/EXTREMETIES Musculoskeletal/Extremeties: MAEW - NEURO Level of Consciousness: Awake - DERM Integumentary: Abscess - Crusted 1 cm abscess to the right lateral upper arm. Course - Vital Signs Vital signs: Temp Pulse Resp BP Pulse Ox 98.4 F 105 H 16 127/65 H 100 03/19/18 07:25 03/19/18 07:25 03/19/18 07:25 03/19/18 07:25 03/19/18 07:25 Procedures - Incision and Drainage Right Upper Arm Time completed: 09:50 Type: Simple Anesthetic type: 1% Lidocaine mL's of anesthetic: 4 Blade size: 11 I&D procedure: Betadine prep applied, Sterile dressing applied - packed with corner of 4 x 4 Incision Method: Incision made by scalpel - eccised devitalized tissue and got the pus out Amount/type of drainage: moderate pus Discharge - Discharge Clinical Impression: I and D right upper arm abscess Condition: Good Disposition: HOME, SELF-CARE Instructions: Acetaminophen, Anti-Inflammatory Medication ([facility]), Bactroban Ointment ([facility]), Doxycycline ([facility]), Warm Packs ([facility]) Additional Instructions: Warm compress Shower daily with antibacterial soap and use Q-tip to keep the wound open until it heals from the inside out Return to the emergency room any concerns Doxycycline twice a day for a week Bactroban small amount each nostril twice a day for 5 days Bactroban can also be used on smaller lesions when they first begin to prevent the abscess Prescriptions: Ibuprofen [Motrin 800 mg Tablet] 800 mg PO Q8HP PRN #30 tablet PRN Reason: Doxycycline Hyclate 100 mg PO BID #20 capsule
[2018-03-19] MEDS ORDERED: MUPIROCIN 2% OINTMENT 22 GM TP ONE (08:31)
[2018-03-19] MEDS ORDERED: DOXYCYCLINE HYCLATE 100 MG TABLET PO ONE (08:31)
[2018-03-19] MEDS ORDERED: ONDANSETRON 4 MG TAB.RAPDIS PO ONE (08:50)
[2018-03-19] MEDS ORDERED: IBUPROFEN 600 MG TABLET PO ONE (08:50)
[2018-03-19] MEDS ORDERED: ACETAMINOPHEN 325 MG TABLET PO ONE (08:50)
[2018-03-19 09:55] VITALS: BP 117/74
== END 2018-03-19 10:00 | disposition home or self-care (01) ==
LOC: ER 07:18
DX: L02.413 Cutaneous abscess of right upper limb (principal); R68.83 Chills (without fever); F17.200 Nicotine dependence, unspecified, uncomplicated; J45.909 Unspecified asthma, uncomplicated; Z86.14 Personal history of Methicillin resistant Staphylococcus aureus infection
CPT/HCPCS: 99283; 10060; S0119; J3490

== ENCOUNTER 2018-03-31 07:13 | Emergency (ER) | payer SELFPAY ==
--- NOTE | 2018-03-31 07:48 | ER Document Report ---
HPI - HPI Patient complains to provider of: lip swelling abscess Onset: Last week Pain Level: 5 Context: 32 yo male with upper sidney abscess swelling since weekend. very painful tried to get pus out. Hx. MRSA. Been in ER several times since end february. Tried Bactroban as instructed last visit. Associated Symptoms: None Exacerbated by: Movement Relieved by: Denies - ROS ROS below otherwise negative: Yes Systems Reviewed and Negative: Yes All other systems reviewed and negative - REPRODUCTIVE Reproductive: DENIES: : Past Medical History - General Information source: Patient - Social History Smoking Status: Current Every Day Smoker Chew tobacco use (# tins/day): No Frequency of alcohol use: Social Drug Abuse: None Lives with: Family Family History: Reviewed & Not Pertinent Patient has suicidal ideation: No Patient has homicidal ideation: No Pulmonary Medical History: Reports: Hx Asthma Musculoskeletal Medical History: Reports Hx Musculoskeletal Trauma - Facial bone fractures Skin Medical History: Reports Hx Cellulitis, Reports Hx MRSA Traumatic Medical History: Reports: Hx Fractures - Facial bones Infectious Medical History: Reports: Hx MRSA Past Surgical History: Reports: Hx Oral Surgery, Hx Orthopedic Surgery - right shoulder - Immunizations Immunizations up to date: Yes Hx Diphtheria, Pertussis, Tetanus Vaccination: Yes - unknown last Vertical Provider Document - CONSTITUTIONAL Agree With Documented VS: Yes Exam Limitations: No Limitations General Appearance: No Apparent Distress - INFECTION CONTROL TRAVEL OUTSIDE OF THE [place] IN LAST 30 DAYS: No - HEENT Notes: upper right lip with crusted pustule and swelling, no dental abscess - NECK Neck: Supple. negative: Lymphadenopathy-Left, Lymphadenopathy-Right - NEURO Level of Consciousness: Alert - DERM Integumentary: Abscess - see above Course - Re-evaluation Re-evalutation: 03/31/18 08:42 Patient is not happy that he is not getting anything stronger than Motrin or Tylenol for pain. - Vital Signs Vital signs: Temp Pulse Resp BP Pulse Ox 97.8 F 88 18 142/85 H 100 03/31/18 07:13 03/31/18 07:13 03/31/18 07:13 03/31/18 07:13 03/31/18 07:13 Procedures - Incision and Drainage Upper Time completed: 08:41 Type: Simple Anesthetic type: 1% Lidocaine mL's of anesthetic: 2 Blade size: 11 I&D procedure: Other - small corner of rolled 4 x 4 placed in the incision area and I gave him a warm compress Incision Method: Incision made by scalpel Amount/type of drainage: small pus, blood Discharge - Discharge Clinical Impression: Upper lip abscess I&D Condition: Good Disposition: HOME, SELF-CARE Instructions: Abscess ([facility]), Doxycycline ([facility]), Post Incision and Drainage Additional Instructions: warm compress antibiotics until gone to er is sx worsen see the ships equipment engineer if persists Prescriptions: Ibuprofen [Motrin 600 mg Tablet] 600 mg PO Q8HP PRN #30 tablet PRN Reason: Doxycycline Hyclate 100 mg PO BID #14 capsule Referrals: LEYDI RUTH DO [ACTIVE STAFF] - Follow up as needed
[2018-03-31] MEDS ORDERED: ACETAMINOPHEN 325 MG TABLET PO ONE (07:53)
[2018-03-31] MEDS ORDERED: IBUPROFEN 600 MG TABLET PO ONE (07:53)
[2018-03-31] MEDS ORDERED: LIDOCAINE 4%/TETRACAINE 0.5%/EPI 0.18% 5 ML TOPICAL SOLN TOP ONE (07:53)
[2018-03-31] MEDS ORDERED: DOXYCYCLINE HYCLATE 100 MG TABLET PO ONE (07:53)
[2018-03-31 08:53] VITALS: BP 130/85
== END 2018-03-31 08:45 | disposition home or self-care (01) ==
LOC: ER 07:13
PROC: 0H91XZZ Drainage of Face Skin, External Approach (ICD-10-PCS; principal; 2018-03-31)
DX: R22.0 Localized swelling, mass and lump, head (principal); F17.200 Nicotine dependence, unspecified, uncomplicated; J45.909 Unspecified asthma, uncomplicated
CPT/HCPCS: 99283; 10060; J3490

== ENCOUNTER 2018-05-08 08:09 | Emergency (ER) | payer SELFPAY ==
[2018-05-08] MEDS ORDERED: KETOROLAC TROMETHAMINE 60 MG/2 ML SDV IM ONE (09:00)
--- NOTE | 2018-05-08 09:01 | ER Document Report ---
ED General - General Chief Complaint: Numbness of Arm Stated Complaint: ARM NUMBNESS Time Seen by Provider: 05/08/18 08:36 Mode of Arrival: Ambulatory Information source: Patient Notes: 32-year-old male presents with a 6-day history of numbness, tingling, pain located to fingers 1, 2 and 3 in the right hand. Patient states that the pain has progressed into the forearm. 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 He does use repetitive motions of this hand. He denies any trauma or injury. TRAVEL OUTSIDE OF THE [place] IN LAST 30 DAYS: No - HPI Onset: Other - 6 days Onset/Duration: Gradual Quality of pain: Throbbing Severity: Mild Associated symptoms: None Exacerbated by: Movement Relieved by: Denies Similar symptoms previously: No Recently seen / treated by doctor: No - Related Data Allergies/Adverse Reactions: hydrocodone bitartrate [From Vicodin] Allergy (Mild, Verified 03/19/18 07:19) upset stomach/hives/rash Past Medical History - General Information source: Patient - Social History Smoking Status: Current Every Day Smoker Family History: Reviewed & Not Pertinent Pulmonary Medical History: Reports: Hx Asthma Denies: Hx Tuberculosis Renal/ Medical History: Denies: Hx Peritoneal Dialysis Musculoskeletal Medical History: Reports Hx Musculoskeletal Trauma - Facial bone fractures Skin Medical History: Reports Hx Cellulitis, Reports Hx MRSA Traumatic Medical History: Reports: Hx Fractures - Facial bones Infectious Medical History: Reports: Hx MRSA Past Surgical History: Reports: Hx Oral Surgery, Hx Orthopedic Surgery - right shoulder - Immunizations Immunizations up to date: Yes Hx Diphtheria, Pertussis, Tetanus Vaccination: Yes - unknown last Review of Systems - Review of Systems Constitutional: No symptoms reported EENT: No symptoms reported Cardiovascular: No symptoms reported Respiratory: No symptoms reported Gastrointestinal: No symptoms reported Genitourinary: No symptoms reported Musculoskeletal: Muscle pain Skin: No symptoms reported Hematologic/Lymphatic: No symptoms reported Neurological/Psychological: Numbness, Tingling -: Yes All other systems reviewed and negative Physical Exam - Vital signs Vitals: Temp Pulse Resp BP Pulse Ox 97.9 F 74 18 141/87 H 99 05/08/18 08:12 05/08/18 08:12 05/08/18 08:12 05/08/18 08:12 12/01/18 08:12 - Notes Notes: PHYSICAL EXAMINATION: GENERAL: Well-appearing, well-nourished and in no acute distress. HEAD: Atraumatic, normocephalic. EYES: Pupils equal round and reactive to light, extraocular movements intact, sclera anicteric, conjunctiva are normal. ENT: Nares patent, oropharynx clear without exudates. Moist mucous membranes. NECK: Normal range of motion, supple without lymphadenopathy LUNGS: Breath sounds clear to auscultation bilaterally and equal. No wheezes rales or rhonchi. HEART: Regular rate and rhythm without murmurs ABDOMEN: Soft, nontender, nondistended abdomen. No guarding, no rebound. No masses appreciated. Musculoskeletal: Numbness, tingling, pain to the C6 dermatome. Patient has a positive Phalen's and Tinel's signs. 2+ radial pulse on the right upper extremity. Capillary refill less than 2 seconds. No sign of infection. NEUROLOGICAL: Cranial nerves grossly intact. Normal speech, normal gait. Normal sensory, motor exams PSYCH: Normal mood, normal affect. SKIN: Warm, Dry, normal turgor, no rashes or lesions noted. Course - Re-evaluation Re-evalutation: 05/08/18 09:09 Cock-up splint ordered. Patient given Toradol in the emergency department. I will refer the patient to a family physician as well as with a surgeon. I instructed the patient to wear the splint, to take [id number] medication as needed for symptom relief, and to return to the emergency department for worsening symptoms. Patient is agreeable to plan of care. - Vital Signs Vital signs: Temp Pulse Resp BP Pulse Ox 97.9 F 74 18 141/87 H 99 05/08/18 08:12 05/08/18 08:12 05/08/18 08:12 05/08/18 08:12 05/08/18 08:12 Discharge - Discharge Clinical Impression: Carpal tunnel syndrome of right wrist Condition: Good Disposition: HOME, SELF-CARE Instructions: Carpal Tunnel Syndrome ([facility]) Referrals: ASHLEIGH TREVIÑO MD [COMMUNITY BASED STAFF] - Follow up as needed ABE BEAULIEU MD [ACTIVE STAFF] - Follow up as needed
[2018-05-08 09:21] VITALS: BP 139/88
== END 2018-05-08 09:26 | disposition home or self-care (01) ==
LOC: ER 08:09
DX: G56.01 Carpal tunnel syndrome, right upper limb (principal); J45.909 Unspecified asthma, uncomplicated; F17.200 Nicotine dependence, unspecified, uncomplicated; Z88.5 Allergy status to narcotic agent
CPT/HCPCS: 99284; 96372; L3908; J1885

== ENCOUNTER 2018-05-18 11:54 | Emergency (ER) | payer SELFPAY ==
[2018-05-18 12:28] VITALS: BP 128/80
[2018-05-18] MEDS ORDERED: NAPROXEN 250 MG TABLET PO ONE (12:56)
--- NOTE | 2018-05-18 12:56 | ER Document Report ---
ED Extremity Problem, Upper - General Chief Complaint: Arm Pain Stated Complaint: GENERALIZED PAIN Time Seen by Provider: 05/18/18 12:28 Mode of Arrival: Ambulatory Information source: Patient Notes: 32-year-old male presented to ED for complaint of right arm pain. He states his been hurting for 2 weeks and getting progressively worse. Since he was diagnosed with carpal tunnel syndrome but has not followed up with orthopedics and has not been using his naproxen as prescribed. He states he has not been wearing his splint like he was told to. Patient is alert and oriented respirations regular and unlabored speaking in full sentences. TRAVEL OUTSIDE OF THE [place] IN LAST 30 DAYS: No - HPI Patient complains to provider of: Pain, Right, Arm. No: Swelling Onset: Other - 2-3 weeks Recent injury: No Quality of pain: Achy, Throbbing Severity of pain: Moderate Pain Level: 3 Exacerbated by: Movement, Exertion Relieved by: Nothing Similar symptoms previously: Yes Recently seen / treated by doctor: Yes - Related Data Allergies/Adverse Reactions: hydrocodone bitartrate [From Vicodin] Allergy (Mild, Verified 05/18/18 12:10) upset stomach/hives/rash Past Medical History - General Information source: Patient - Social History Smoking Status: Current Every Day Smoker Cigarette use (# per day): Yes - Half pack per day Chew tobacco use (# tins/day): No Smoking Education Provided: Yes - 4 minutes Frequency of alcohol use: Occasional Drug Abuse: None Lives with: Family Family History: Reviewed & Not Pertinent Patient has suicidal ideation: No Patient has homicidal ideation: No - Past Medical History Cardiac Medical History: Reports: None Pulmonary Medical History: Reports: Hx Asthma EENT Medical History: Reports: None Neurological Medical History: Reports: None Endocrine Medical History: Reports: None Renal/ Medical History: Reports: None Malignancy Medical History: Reports None GI Medical History: Reports: None Musculoskeletal Medical History: Reports Hx Musculoskeletal Trauma - Facial bone fractures Skin Medical History: Reports Hx Cellulitis, Reports Hx MRSA Psychiatric Medical History: Reports: None Traumatic Medical History: Reports: Hx Fractures - Facial bones Infectious Medical History: Reports: Hx MRSA Past Surgical History: Reports: Hx Oral Surgery, Hx Orthopedic Surgery - right shoulder - Immunizations Immunizations up to date: No Hx Diphtheria, Pertussis, Tetanus Vaccination: No Review of Systems - Review of Systems Constitutional: No symptoms reported EENT: No symptoms reported Cardiovascular: No symptoms reported Respiratory: No symptoms reported Gastrointestinal: No symptoms reported Genitourinary: No symptoms reported Male Genitourinary: No symptoms reported Musculoskeletal: Joint pain - Right wrist. denies: Joint swelling Skin: No symptoms reported Hematologic/Lymphatic: No symptoms reported Neurological/Psychological: No symptoms reported Physical Exam - Vital signs Vitals: Temp Pulse Resp BP Pulse Ox 98.5 F 80 16 128/80 H 100 05/18/18 12:05/18/18 12:05/18/18 12:05/18/18 12:05/18/18 12: Interpretation: Normal - General General appearance: Appears well, Alert - HEENT Head: Normocephalic, Atraumatic Eyes: Normal Pupils: PERRL - Respiratory Respiratory status: No respiratory distress Chest status: Nontender Breath sounds: Normal Chest palpation: Normal - Cardiovascular Rhythm: Regular Heart sounds: Normal auscultation Murmur: No - Abdominal Inspection: Normal Distension: No distension Bowel sounds: Normal Tenderness: Nontender Organomegaly: No organomegaly - Back Back: Normal, Nontender - Extremities General upper extremity: Normal inspection, Normal color, Normal ROM, Normal temperature General lower extremity: Normal inspection, Nontender, Normal color, Normal ROM , Normal temperature, Normal weight bearing. No: Juancho's sign Wrist: Tender - Right wrist. No: Axial load of thumb pain, Deformity, Dislocation, Ecchymosis, Instability, Laceration, Limited ROM, Navicular tenderness Hand: No evidence of human bite, No evidence of FB. No: Tender, Abrasion, Deformity, Dislocation, Ecchymosis, Laceration, Nail injury, Swelling, Tendon deficit - Neurological Neuro grossly intact: Yes Cognition: Normal Orientation: AAOx4 Lexis Coma Scale Eye Opening: Spontaneous [place] Coma Scale Verbal: Oriented [place] Coma Scale Motor: Obeys Commands Lexis Coma Scale Total: 15 Speech: Normal Motor strength normal: LUE, RUE, LLE, RLE Sensory: Normal - Psychological Associated symptoms: Normal affect, Normal mood - Skin Skin Temperature: Warm Skin Moisture: Dry Skin Color: Normal Course - Vital Signs Vital signs: Temp Pulse Resp BP Pulse Ox 98.5 F 80 16 128/80 H 100 05/18/18 12:05/18/18 12:05/18/18 12:18 12:26 05/18/18 12:26 Discharge - Discharge Clinical Impression: Carpal tunnel syndrome of right wrist Condition: Stable Disposition: HOME, SELF-CARE Additional Instructions: Carpal Tunnel Syndrome Your examination suggests carpal tunnel syndrome. This syndrome is due to pressure on a nerve in the wrist. The pressure may be caused by an old injury, hard work using the wrist, work involving repeated motions of the hand, wrist positions that keep pressure on the joint, or arthritis in the wrist. Typical symptoms are tingling, numbness, and pain in the palm, thumb, index and middle fingers, and one side of the ring finger. Often a splint, ice packs, and antiinflammatory medication make the symptoms go away. If the physician feels that your problem is chronic, you will be referred to a specialist for further care. If symptoms do not go away, carpal tunnel syndrome may require surgery. You should call the doctor if pain increases, if you develop difficulty using the thumb or fingers, or if major swelling occurs. Anti-Inflammatory Medication You have received a prescription for an antiinflammatory agent. This is an excellent, safe drug for pain control. In addition, it has potent antiinflammatory effects which are beneficial, especially in the treatment of injuries, arthritis, or tendonitis. It's best to take this medicine with food. Persons with ulcer disease or allergy to aspirin should notify their physician of this before taking this drug. Take the medication exactly as prescribed. Don't take additional doses unless instructed to do so by your doctor. If you develop wheezing, shortness of breath, hives, faintness, stomach pain, vomiting, or dark black stools, return for re-evaluation at once. FOLLOW-UP CARE: If you have been referred to a physician for follow-up care, call the physician s office for an appointment as you were instructed or within the next two days. If you experience worsening or a significant change in your symptoms, notify the physician immediately or return to the Emergency Department at any time for re-evaluation. Prescriptions: Naproxen 500 mg PO BIDP PRN #20 tablet PRN Reason: Forms: Elevated Blood Pressure, Smoking Cessation Education Referrals: ABE BEAULIEU MD [ACTIVE STAFF] - Follow up as needed PARAS TREVIÑO MD [MANUFACTURER AGENT] - Follow up as needed
== END 2018-05-18 13:07 | disposition home or self-care (01) ==
LOC: ER 11:54
DX: G56.01 Carpal tunnel syndrome, right upper limb (principal); Z91.19 Patient's noncompliance with other medical treatment and regimen; Z91.14 Patient's other noncompliance with medication regimen; F17.210 Nicotine dependence, cigarettes, uncomplicated; Z71.6 Tobacco abuse counseling; Z88.5 Allergy status to narcotic agent
CPT/HCPCS: 99283; 99406

== ENCOUNTER 2018-06-11 08:02 | Emergency (ER) | payer SELFPAY ==
[2018-06-11] MEDS ORDERED: IBUPROFEN 800 MG TABLET PO ONE (08:38)
[2018-06-11] MEDS ORDERED: OXYCODONE-ACETAMINOPHEN 5-325 MG TABLET PO ONE (08:38)
--- NOTE | 2018-06-11 08:40 | ER Document Report ---
HPI - HPI Patient complains to provider of: Right shoulder and upper arm pain Time Seen by Provider: 06/11/18 08:19 Onset: Other - 2 months Onset/Duration: Persistent Quality of pain: Achy Pain Level: 5 Context: Patient presents complaining of right shoulder and upper arm pain. Patient is right-hand dominant. Patient denies any injury. Patient states he has been s een for this issue in the past and was told that he had carpal tunnel. Patient denies any fever. Associated Symptoms: Other - Right shoulder, right upper extremity pain Exacerbated by: Movement Relieved by: Denies Similar symptoms previously: Yes Recently seen / treated by doctor: Yes - ROS ROS below otherwise negative: Yes Systems Reviewed and Negative: Yes All other systems reviewed and negative - CONSTITUTIONAL Constitutional: DENIES: Fever - NEURO Neurology: DENIES: Weakness - CARDIOVASCULAR Cardiovascular: DENIES: Chest pain - RESPIRATORY Respiratory: DENIES: Trouble Breathing, Coughing - GASTROINTESTINAL Gastrointestinal: DENIES: Nausea - REPRODUCTIVE Reproductive: DENIES: : - MUSCULOSKELETAL Musculoskeletal: REPORTS: Extremity pain - DERM Skin Color: Normal Skin Problems: None Past Medical History - General Information source: Patient - Social History Smoking Status: Current Every Day Smoker Smoking Education Provided: Yes Frequency of alcohol use: None Drug Abuse: None 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 Family History: Reviewed & Not Pertinent Patient has suicidal ideation: No Patient has homicidal ideation: No Pulmonary Medical History: Reports: Hx Asthma Denies: Hx Tuberculosis Renal/ Medical History: Denies: Hx Peritoneal Dialysis Musculoskeletal Medical History: Reports Hx Musculoskeletal Trauma - Facial bone fractures Skin Medical History: Reports Hx Cellulitis, Reports Hx MRSA Traumatic Medical History: Reports: Hx Fractures - Facial bones Infectious Medical History: Reports: Hx MRSA Past Surgical History: Reports: Hx Oral Surgery, Hx Orthopedic Surgery - right shoulder - Immunizations Immunizations up to date: No Hx Diphtheria, Pertussis, Tetanus Vaccination: No Vertical Provider Document - CONSTITUTIONAL Agree With Documented VS: Yes Exam Limitations: No Limitations General Appearance: WD/WN, No Apparent Distress - INFECTION CONTROL TRAVEL OUTSIDE OF THE [place] IN LAST 30 DAYS: No - HEENT HEENT: Atraumatic, Normal ENT Exam, Normocephalic - NECK Neck: Normal Inspection, Supple. negative: Lymphadenopathy-Left, Lymphadenopathy-Right - RESPIRATORY Respiratory: Breath Sounds Normal, No Respiratory Distress - CARDIOVASCULAR Cardiovascular: Regular Rate, Regular Rhythm Pulses: Normal: Radial - BACK Back: Abnormal Inspection - Right upper back, shoulder tenderness - MUSCULOSKELETAL/EXTREMETIES Musculoskeletal/Extremeties: MAEW, FROM, Tender - Tenderness to right shoulder and right scapular area, no ecchymosis, erythema or swelling. Normal strength to bilateral upper extremities 5/5, No Edema - NEURO Level of Consciousness: Awake, Alert, Appropriate Motor/Sensory: No Motor Deficit - DERM Integumentary: Warm, Dry Course - Re-evaluation Re-evalutation: 06/11/18 Patient with exam findings consistent with a cervical radicular pattern. Patient with normal strength and muscle tone to bilateral upper extremities. No concern for spinal epidural abscess. Patient nontoxic in appearance. Patient encouraged to follow-up with orthopedics for further evaluation. - Vital Signs Vital signs: Temp Pulse Resp BP Pulse Ox 98.1 F 70 16 120/72 99 06/11/18 08:07 06/11/18 08:07 06/11/18 08:07 06/11/18 08:07 06/11/18 08:07 - Diagnostic Test Radiology reviewed: Reports reviewed Discharge - Discharge Clinical Impression: Cervical radicular pain Condition: Stable Disposition: HOME, SELF-CARE Instructions: Arthritis ([facility]), Oral Narcotic Medication ([facility]), Radiculopathy ([facility]), Steroid Medication Additional Instructions: Return immediately for any new or worsening symptoms Followup with your primary care provider, call tomorrow to make a followup appointment Follow-up with orthopedics for further evaluation, call today for an appointment Prescriptions: Oxycodone HCl/Acetaminophen [Percocet 5-325 mg Tablet] 1 tab PO ASDIR PRN #15 tablet PRN Reason: Prednisone [Deltasone 20 mg Tablet] 3 tab PO DAILY 5 Days tablet Forms: Smoking Cessation Education, Return to Work Referrals: [facility] [Provider Group] - Follow up as needed
--- NOTE | 2018-06-11 09:09 | RADIOLOGY REPORT (SQ) ---
EXAM DESCRIPTION: 116 CT CERVICAL SPINE WITHOUT COMPLETED DATE/TIME: 06/11/2018 8:56 am REASON FOR STUDY: RUE pain, numbness COMPARISON: CT TECHNIQUE: Axial images acquired through the cervical spine without intravenous contrast. Images re viewed with lung, soft tissue and bone windows. Reconstructed coronal and sagittal MPR images review ed. Images stored on PACS. All CT scanners at this facility use dose modulation, iterative reconstruction, and/or weight based d osing when appropriate to reduce radiation dose to as low as reasonably achievable (ALARA). [facility]: Dose Right [facility]: CareDose [facility]: Dose Right [facility]: Teradose 4D [facility]: [employer] RADIATION DOSE: CT Rad equipment meets quality standard of care and radiation dose reduction techniq ues were employed. CTDIvol: 18.2 mGy. DLP: 449 mGy-cm. mGy. LIMITATIONS: None. FINDINGS: ALIGNMENT: Anatomic. MINERALIZATION: Straightening of the normal cervical lordosis, likely secondary to patient positionin g. VERTEBRAL BODIES: No fractures or dislocation. DISCS: Mild disc height loss and osteophytosis at C5-6, stable. Small posterior projecting osteophyt es. FACETS, LATERAL MASSES, POSTERIOR ELEMENTS: No fractures. No dislocation. No acute findings. No si gnificant osseous spinal canal or neural foraminal narrowing. HARDWARE: None in the spine. VISUALIZED RIBS: No fractures. LUNG APICES AND SOFT TISSUES: No pneumothorax. Small luminal opacity within the left aspect of the t rachea at the level of the thoracic inlet, likely inspissated mucus. OTHER: No other significant finding. IMPRESSION: No evidence of acute osseous abnormality. No significant osseous spinal canal or neural foraminal narrowing. TECHNICAL DOCUMENTATION: JOB ID: [id number] Quality ID # [id number]: Final reports with documentation of one or more dose reduction techniques (e.g., Au tomated exposure control, adjustment of the mA and/or kV according to patient size, use of iterative reconstruction technique) 2010 [employer]- All Rights Reserved Reading location - IP/workstation name: [facility]-[email or web address]
--- NOTE | 2018-06-11 09:10 | RADIOLOGY REPORT (SQ) ---
EXAM DESCRIPTION: SHOULDER RIGHT 2 OR MORE VIEWS COMPLETED DATE/TIME: 06/11/2018 9:00 am REASON FOR STUDY: RUE pain, numbness, R shoulder pain COMPARISON: None. NUMBER OF VIEWS: Three views. TECHNIQUE: Internal rotation, external rotation, and Y view images acquired of the right shoulder. LIMITATIONS: None. FINDINGS: MINERALIZATION: Normal. BONES: No acute fracture or dislocation. No worrisome bone lesions. JOINTS: No dislocation. VISUALIZED LUNGS AND RIBS: No pneumothorax. No rib fracture. SOFT TISSUES: No radiopaque foreign body. OTHER: No other significant finding. IMPRESSION: No evidence of acute osseous abnormality. TECHNICAL DOCUMENTATION: JOB ID: [id number] [employer]- All Rights Reserved Reading location - IP/workstation name: [facility]
[2018-06-11 09:45] VITALS: BP 118/69
== END 2018-06-11 09:52 | disposition home or self-care (01) ==
LOC: ER 08:02
DX: M54.12 Radiculopathy, cervical region (principal); M25.511 Pain in right shoulder; M79.621 Pain in right upper arm; F17.200 Nicotine dependence, unspecified, uncomplicated; J45.909 Unspecified asthma, uncomplicated
CPT/HCPCS: 72125; 99284

== ENCOUNTER 2018-06-13 13:49 | Emergency (ER) | payer SELFPAY ==
[2018-06-13] MEDS ORDERED: IBUPROFEN 800 MG TABLET PO ONE (16:11)
--- NOTE | 2018-06-13 16:21 | RADIOLOGY REPORT (SQ) ---
EXAM DESCRIPTION: L SPINE WHOLE COMPLETED DATE/TIME: 06/13/2018 4:07 pm REASON FOR STUDY: low back pain COMPARISON: None. NUMBER OF VIEWS: Five views including obliques. TECHNIQUE: AP, lateral, oblique, and sacral radiographic images acquired of the lumbar spine. LIMITATIONS: None. FINDINGS: MINERALIZATION: Normal. SEGMENTATION: Normal. No transitional anatomy. ALIGNMENT: Normal. VERTEBRAE: Maintained height. No fracture or worrisome bone lesion. DISCS: Preserved height. No significant osteophytes or end plate irregularity. POSTERIOR ELEMENTS: Pedicles and facets are intact. No pars defect or posterior arch defects. HARDWARE: None in the spine. PARASPINAL SOFT TISSUES: Normal. PELVIS: Intact as visualized. No fractures or worrisome bone lesions. SI joints intact. OTHER: No other significant finding. IMPRESSION: NORMAL 5 VIEW LUMBAR SPINE. TECHNICAL DOCUMENTATION: JOB ID: [id number] [employer]- All Rights Reserved Reading location - IP/workstation name: [email or web address]
--- NOTE | 2018-06-13 17:17 | ER Document Report ---
ED Neck/Back Problem - General Chief Complaint: Hip Pain Stated Complaint: RIGHT ARM/NECK/BACK PAIN Time Seen by Provider: 06/13/18 15:37 Mode of Arrival: Ambulatory Information source: Patient Notes: 32-year-old male presented to ED for complaint of right arm and neck pain and bilateral hip pain with worse to the left. He states he does not recall any exact injuries but he has been having pain for months. He states he was seen a few days ago and was given Percocet and prednisone a few days ago and he has used these and he does still hurting. He states he cannot follow-up because he does not have insurance. TRAVEL OUTSIDE OF THE [place] IN LAST 30 DAYS: No - HPI Patient complains to provider of: Pain, Neck, Upper back, Lower back. No: Injury Onset: Other - Months Onset: Chronic Timing: Still present Quality of pain: Burning, Sharp, Throbbing Severity: Moderate Pain Level: 3 Recent injury: No Associated symptoms: Like prior neck/back pain, Radiation to arm, Radiation to leg, Lower back pain, Upper back pain. denies: Constipation, Incontinence, Motor loss, Numbness/tingling, Radiation to chest, Sensory loss, Unable to urinate Exacerbated by: Movement of neck, Movement of trunk, Sitting position Relieved by: Nothing Similar symptoms previously: Yes Recently seen / treated by doctor: Yes - Related Data Allergies/Adverse Reactions: hydrocodone bitartrate [From Vicodin] Allergy (Mild, Verified 06/13/18 13:51) upset stomach/hives/rash Past Medical History - General Information source: Patient - Social History Smoking Status: Current Every Day Smoker Cigarette use (# per day): Yes - 1/2 pack/day Chew tobacco use (# tins/day): No Smoking Education Provided: Yes - 4 minutes Frequency of alcohol use: Occasional Drug Abuse: None Family History: Reviewed & Not Pertinent Patient has suicidal ideation: No Patient has homicidal ideation: No - Past Medical History Cardiac Medical History: Reports: None Pulmonary Medical History: Reports: Hx Asthma EENT Medical History: Reports: None Neurological Medical History: Reports: None Endocrine Medical History: Reports: None Renal/ Medical History: Reports: None Malignancy Medical History: Reports None GI Medical History: Reports: None Musculoskeletal Medical History: Reports Hx Musculoskeletal Trauma - Facial bone fractures Skin Medical History: Reports Hx Cellulitis, Reports Hx MRSA Psychiatric Medical History: Reports: None Traumatic Medical History: Reports: Hx Fractures - Facial bones Infectious Medical History: Reports: Hx MRSA Past Surgical History: Reports: Hx Oral Surgery, Hx Orthopedic Surgery - right shoulder - Immunizations Immunizations up to date: No Hx Diphtheria, Pertussis, Tetanus Vaccination: No Review of Systems - Review of Systems Constitutional: No symptoms reported EENT: No symptoms reported Cardiovascular: No symptoms reported Respiratory: No symptoms reported Gastrointestinal: No symptoms reported Genitourinary: No symptoms reported Male Genitourinary: No symptoms reported Musculoskeletal: Back pain, Muscle pain, Muscle stiffness Skin: No symptoms reported Hematologic/Lymphatic: No symptoms reported Neurological/Psychological: No symptoms reported -: Yes All other systems reviewed and negative Physical Exam - Vital signs Vitals: Temp Pulse Resp BP Pulse Ox 97.8 F 102 H 18 127/70 H 99 06/13/18 13:54 06/13/18 13:54 06/13/18 13:54 06/13/18 13:54 06/13/18 13:54 Interpretation: Normal - General General appearance: Appears well, Alert - HEENT Head: Normocephalic, Atraumatic Eyes: Normal Pupils: PERRL - Respiratory Respiratory status: No respiratory distress Chest status: Nontender Breath sounds: Normal Chest palpation: Normal - Cardiovascular Rhythm: Regular Heart sounds: Normal auscultation Murmur: No - Abdominal Inspection: Normal Distension: No distension Bowel sounds: Normal Tenderness: Nontender Organomegaly: No organomegaly - Back Back: Normal, Tender - Lower back pain Notes: No signs or symptoms of cauda equina, no concern for spinal abscess, patient had no complaint of loss of control of bowel bladder, saddle anesthesia, loss of sensation to the lower extremities, or loss the use of the lower extremities. He had no loss of use of the arms or no loss of sensation to the arms. - Extremities General upper extremity: Normal inspection, Normal color, Normal temperature General lower extremity: Normal inspection, Normal color, Normal ROM, Normal temperature, Normal weight bearing. No: Juancho's sign Shoulder: Tender, Limited ROM - Patient states he cannot lift his arm or move his arm due to the pain. Complete range of full range of motion it was very painful. He had complete range of motion to his hip with 5 out of 5 strength bilaterally. No bruising, no redness, no swelling there was point tenderness to the right shoulder and right scapula area. Arm: Normal, Nontender Elbow: Normal, Nontender Forearm: Normal, Nontender Wrist: Normal, Nontender Hand: Normal, Nontender Hip: Tender - Left buttocks, Pain with ROM, Other - There was point tenderness to the left buttocks but he had flow full flexion extension of the hip Thigh: Normal, Nontender Knee: Normal, Nontender Calf: Normal, Nontender Ankle: Normal, Nontender Foot: Normal, Nontender - Neurological Neuro grossly intact: Yes Cognition: Normal Orientation: AAOx4 Lexis Coma Scale Eye Opening: Spontaneous Lexis Coma Scale Verbal: Oriented Ahmeek Coma Scale Motor: Obeys Commands Lexis Coma Scale Total: 15 Speech: Normal Motor strength normal: LUE, RUE, LLE, RLE Sensory: Normal - Psychological Associated symptoms: Normal affect, Normal mood - Skin Skin Temperature: Warm Skin Moisture: Dry Skin Color: Normal Course - Re-evaluation Re-evalutation: 06/13/18 21:26 I explained the patient that the emergency room is not a place to go home for chronic pain. I explained to him that he needs to follow-up with her primary doctor who can get him into pain management or back specialist to treat his pain to his neck and back. I explained to him that I know that sometimes inflamed nerves can cause pain in his arms and legs but he needs to follow-up with a primary doctor who can get his treatment on a continuous care until he can get relief. There have been no injuries that he needs to come to the emergency room for there are no acute changes and no acute injuries that he needs an MRI at this time. Patient has been informed for further narcotics he needs to go to her primary doctor. Patient verbalized understanding and agreement with treatment plan. - Vital Signs Vital signs: Temp Pulse Resp BP Pulse Ox 97.8 F 96 16 126/79 H 97 06/13/18 13:54 06/13/18 17:20 06/13/18 17:20 06/13/18 17:20 06/13/18 17:20 Discharge - Discharge Clinical Impression: Chronic neck and back pain, Cervical radicular pain Sciatica Qualifiers: Laterality: bilateral Qualified Code(s): M54.31 - Sciatica, right side Condition: Stable Disposition: HOME, SELF-CARE Instructions: Family Physicians / Practices Additional Instructions: Chronic Back Pain Chronic back pain (pain persisting longer than three months) is a common problem. A medical evaluation can look for herniated disc, arthritis, osteoporosis, tumors, and infections. But at least half the time, there's no obvious treatable cause. Anxiety and depression tend to worsen back pain. Ibuprofen or other anti-inflammatory medicine can help. A heating pad, used for 15-20 minutes at a time, can ease pain. For this type of back pain, narcotic medicines should be avoided. Muscle relaxers are rarely helpful unless you're having spasms. Activity is important. Find an aerobic exercise program that your back can tolerate. Too much rest makes back pain worse. Specific back exercises are usually prescribed to strengthen the back and abdominal muscles. Often, a physical therapist can help. Avoid heavy lifting, working while bent over, or standing with both knees straight. Most back pain patients do better with a firm mattress. If new symptoms of a "herniated disc" (radiation of pain, numbness, or tingling down the back of the leg or weakness in the leg) occur, you should be re-examined. LOW BACK PAIN: Three out of every four people will have an episode of disabling back pain during their lifetime. Most commonly the pain is due to straining of the muscles and ligaments in the low back. Usual treatment includes: (1) Rest on a firm surface. Avoid lying on your stomach. (2) Ice pack the painful area. After a few days, gentle heat may be used intermittently to relax the area, or ice packs can be continued. (3) Medication may be needed -- muscle relaxers and antiinflammatory medicines are commonly used. (4) As the back improves, exercises are prescribed to strengthen the back and abdominal muscles. Your doctor will advise you on the proper care for your back at each stage in your recovery. You may be better in a few days -- or healing may take several weeks. If new symptoms of a "herniated disc" (radiation of pain, numbness, or tingling down the back of the leg or weakness in the leg) occur, you should be re-examined. Further testing may be necessary. ORAL NARCOTIC MEDICATION: You have been given a prescription for pain control. This medication is a narcotic. It's best taken with food, as nausea can result if taken on an empty stomach. Don't operate machinery or drive within six hours of taking this medication. Do not combine this medicine with alcohol, or with any medication which can cause sedation (such as cold tablets or sleeping pills) unless you get permission from the physician. Narcotics tend to cause constipation. If possible, drink plenty of fluids and eat a diet high in fiber and fruits. Please be aware that prescription narcotics also have the potential for abuse. People become addicted to these medications because of the general sense of wellbeing that they induce. This feeling along with a significant reduction in tension, anxiety, and aggression provides a stimulating seductive quality to these drugs. Once your pain is under control, we encourage you to discard your unused narcotics. MUSCLE RELAXERS: Muscle relaxing medications are usually prescribed for acute muscle spasm or injury to the neck and back. They are often combined with antiinflammatory pain medication for increased relief. You may stop the muscle relaxer when the pain and stiffness have improved. Start the medication again if spasms recur. Muscle relaxers may cause drowsiness, especially with the first dose. Do not operate machinery or drive while under the effects of the medication. Most muscle relaxers last up to 24 hours. Do not combine the medication with alcohol. ICE PACKS: Apply ice packs frequently against the painful area. Many different schedules are recommended, such as "20 minutes on, 20 minutes off" or "one hour ice, two hours rest." If you need to work, you may need to go longer between ice treatments. You should plan to have the area ice packed AT LEAST one fourth of the time. The ice should be applied over the wrap, tape, or splint, or over a layer of cloth -- not directly against the skin. Some ice bags have a built-in cloth and can be put directly on the skin. WARM PACKS: After approximately two days, apply gentle heat (such as a heating pad or hot water bottle) for about 20 to 30 minutes about every two hours -- at least four times daily. Warmth and elevation will help you make a more rapid recovery, and will ease the pain considerably. Do not use HOT heat, and never apply heat for longer than 30 minutes. The continuous heat can invisibly damage skin and muscles -- even when no burn is seen on the surface. Damaged muscles can make you MORE sore. Stretching Exercises for the Back The physician has recommended that you begin stretching exercises for your back. These are often used even while the back is painful. However, you should notify the physician if the activities seem to increase your pain. PELVIC TILT: Lie flat on your back with knees bent. Tighten your stomach and buttock muscles so it flattens your lower back against the floor. Hold 10 seconds. Repeat 10 times, twice daily. KNEE RAISE: Lying on the back with knees bent, raise one knee to your chest, then the other. Hold both knees against the chest 10 seconds, then lower one knee at a time. Repeat 10 times, twice daily. PARTIAL TRUNK RAISE: Lie face down, arms at your sides. Keeping your waist on the floor, use your arms raise your chest up. Support yourself on your elbows for 30 seconds. Repeat twice daily, increasing the time to two minutes as you recover. FOLLOW-UP CARE: If you have been referred to a physician for follow-up care, call the physicians office for an appointment as you were instructed or within the next two days. If you experience worsening or a significant change in your symptoms, notify the physician immediately or return to the Emergency Department at any time for re-evaluation. Prescriptions: Oxycodone HCl/Acetaminophen [Percocet 5-325 mg Tablet] 1 tab PO Q6HP PRN #7 tablet PRN Reason: Forms: Elevated Blood Pressure, Smoking Cessation Education Referrals: [facility] [Provider Group] - Follow up as needed
[2018-06-13 17:22] VITALS: BP 126/79
== END 2018-06-13 17:25 | disposition home or self-care (01) ==
LOC: ER 13:49
DX: M54.12 Radiculopathy, cervical region (principal); M54.2 Cervicalgia; M54.41 Lumbago with sciatica, right side; G89.29 Other chronic pain; M54.89 Other dorsalgia; M25.551 Pain in right hip; M25.552 Pain in left hip; M79.601 Pain in right arm; Z88.5 Allergy status to narcotic agent; F17.210 Nicotine dependence, cigarettes, uncomplicated; Z71.6 Tobacco abuse counseling
CPT/HCPCS: 72110; 99283; 99406

== ENCOUNTER 2018-07-18 18:55 | Emergency (ER) | payer SELFPAY ==
[2018-07-18] MEDS ORDERED: KETOROLAC TROMETHAMINE 60 MG/2 ML SDV IM ONE (20:27)
--- NOTE | 2018-07-18 20:27 | ER Document Report ---
ED Medical Screen (RME) - General Chief Complaint: Abscess Stated Complaint: POSSIBLE ABSCESS Time Seen by Provider: 07/18/18 20:24 Mode of Arrival: Ambulatory Information source: Patient Notes: 32-year-old male with a history of MRSA presents emergency department with complaints of an abscess in the left axilla. Patient states that is been present for the last month. He states that it is getting larger. He denies any fever, chills. Patient states his tetanus is up-to-date. I have greeted and performed a rapid initial assessment of this patient. A comprehensive ED assessment and evaluation of the patient, analysis of test results and completion of the medical decision making process will be conducted by additional ED providers. PHYSICAL EXAMINATION: GENERAL: Well-appearing, well-nourished and in no acute distress. HEAD: Atraumatic, normocephalic. EYES: Pupils equal round extraocular movements intact, conjunctiva are normal. ENT: Nares patent NECK: Normal range of motion LUNGS: No respiratory distress Musculoskeletal: Normal range of motion NEUROLOGICAL: Normal speech, normal gait. SKIN: Abscess to the L axilla. +fluctuance. TRAVEL OUTSIDE OF THE [place] IN LAST 30 DAYS: No - Related Data Allergies/Adverse Reactions: hydrocodone bitartrate [From Vicodin] Allergy (Mild, Verified 06/13/18 13:51) upset stomach/hives/rash Past Medical History - Social History Chew tobacco use (# tins/day): No Frequency of alcohol use: Occasional Drug Abuse: None Pulmonary Medical History: Reports: Hx Asthma Denies: Hx Tuberculosis Renal/ Medical History: Denies: Hx Peritoneal Dialysis Musculoskeltal Medical History: Reports Hx Musculoskeletal Trauma - Facial bone fractures Skin Medical History: Reports Hx Cellulitis, Reports Hx MRSA Traumatic Medical History: Reports: Hx Fractures - Facial bones Infectious Medical History: Reports: Hx MRSA Past Surgical History: Reports: Hx Oral Surgery, Hx Orthopedic Surgery - right shoulder - Immunizations Immunizations up to date: No Hx Diphtheria, Pertussis, Tetanus Vaccination: No Physical Exam - Vital signs Vitals: Temp Pulse Resp BP Pulse Ox 99.0 F 85 16 122/81 99 07/18/18 19:24 07/18/18 19:24 07/18/18 19:24 07/18/18 19:24 07/18/18 19:24 Course - Vital Signs Vital signs: Temp Pulse Resp BP Pulse Ox 99.0 F 85 16 122/81 99 07/18/18 19:24 07/18/18 19:24 07/18/18 19:24 07/18/18 19:24 07/18/18 19:24
[2018-07-18] MEDS ORDERED: ACETAMINOPHEN 325 MG TABLET PO ONE (21:24)
[2018-07-18] MEDS ORDERED: MORPHINE SULFATE IR 15 MG TABLET PO ONE (21:24)
[2018-07-18] MEDS ORDERED: IBUPROFEN 600 MG TABLET PO ONE (21:24)
[2018-07-18] MEDS ORDERED: SULFAMETHOXAZOLE/TRIMETHOPRIM 800-160 MG TABLET PO ONE (21:27)
--- NOTE | 2018-07-18 21:30 | ER Document Report ---
ED General - General Chief Complaint: Abscess Stated Complaint: POSSIBLE ABSCESS Time Seen by Provider: 07/18/18 20:24 Mode of Arrival: Ambulatory Notes: Patient is a 32-year-old male without chronic medical problems, does have a history of MRSA presents emergency department with complaints of an abscess in the left axilla. Patient states that is been present for the last month. He states that it is getting larger. He denies any fever, chills. Describes a severe, throbbing, constant pain. Worsened by closing his armpit or touching the area. States it feels identical to when he has had abscesses in the past. Has tried aspirin and ibuprofen without any relief of the pain. Has not seen his general physician regarding today's concerns. TRAVEL OUTSIDE OF THE [place] IN LAST 30 DAYS: No - Related Data Allergies/Adverse Reactions: hydrocodone bitartrate [From Vicodin] Allergy (Mild, Verified 06/13/18 13:51) upset stomach/hives/rash Past Medical History - General Information source: Patient - Social History Smoking Status: Current Every Day Smoker Chew tobacco use (# tins/day): No Frequency of alcohol use: Occasional Drug Abuse: None Family History: Reviewed & Not Pertinent Patient has suicidal ideation: No Patient has homicidal ideation: No Pulmonary Medical History: Reports: Hx Asthma Denies: Hx Tuberculosis Renal/ Medical History: Denies: Hx Peritoneal Dialysis Musculoskeletal Medical History: Reports Hx Musculoskeletal Trauma - Facial bone fractures Skin Medical History: Reports Hx Cellulitis, Reports Hx MRSA Traumatic Medical History: Reports: Hx Fractures - Facial bones Infectious Medical History: Reports: Hx MRSA Past Surgical History: Reports: Hx Oral Surgery, Hx Orthopedic Surgery - right shoulder - Immunizations Immunizations up to date: No Hx Diphtheria, Pertussis, Tetanus Vaccination: No Review of Systems - Review of Systems Notes: Constitutional: Negative for fever. HENT: Negative for sore throat. Eyes: Negative for visual changes. Cardiovascular: Negative for chest pain. Respiratory: Negative for shortness of breath. Gastrointestinal: Negative for abdominal pain, vomiting or diarrhea. Genitourinary: Negative for dysuria. Musculoskeletal: Negative for back pain. Skin: Positive for left axilla abscess Neurological: Negative for headaches, weakness or numbness. 10 point ROS negative except as marked above and in HPI. Physical Exam - Vital signs Vitals: Temp Pulse Resp BP Pulse Ox 99.0 F 85 16 122/81 99 07/18/18 19:24 07/18/18 19:24 07/18/18 19:24 07/18/18 19:24 07/18/18 19:24 Interpretation: Normal Notes: PHYSICAL EXAMINATION: GENERAL: Appears moderately uncomfortable but in no acute distress HEAD: Atraumatic, normocephalic. EYES: Pupils equal round and reactive to light, extraocular movements intact, sclera anicteric, conjunctiva are normal. ENT: nares patent, oropharynx clear without exudates. Moderately dry mucous membranes. NECK: Normal range of motion, supple without lymphadenopathy LUNGS: Breath sounds clear to auscultation bilaterally and equal. No wheezes r ales or rhonchi. HEART: Regular rate and rhythm without murmurs ABDOMEN: Soft, nontender, normoactive bowel sounds. No guarding, no rebound. No masses appreciated. EXTREMITIES: Normal range of motion, no pitting or edema. No cyanosis. NEUROLOGICAL: No focal neurological deficits. Moves all extremities spontaneously and on command. PSYCH: Normal mood, normal affect. SKIN: Warm, Dry, normal turgor, 2 x 2 centimeter abscess in the left mid axilla without surrounding erythema or induration Course - Re-evaluation Re-evalutation: 07/18/18 21:27 Patient presents with a 2 x 2 centimeter abscess in the left axilla without spreading cellulitis. Vitals within normal limits. No indication for labs or imaging. Area was incised and drained without complication. Patient tolerated the procedure well. Has been started on trimethoprim sulfamethoxazole 2 tabs twice daily for the next 1 week. Bleach baths have been advised. At this time will discharge with return precautions and follow-up recommendations. Verbal discharge instructions given a the bedside and opportunity for questions given. Medication warnings reviewed. Patient is in agreement with this plan and has verbalized understanding of return precautions and the need for primary care follow-up in the next 24-72 hours. - Vital Signs Vital signs: Temp Pulse Resp BP Pulse Ox 99.0 F 85 16 122/81 99 07/18/18 19:24 07/18/18 19:24 07/18/18 19:24 07/18/18 19:24 07/18/18 19:24 Procedures - Incision and Drainage Left axilla Type: Simple Anesthetic type: 1% Lidocaine Blade size: 11 I&D procedure: Betadine prep applied, Sterile dressing applied Incision Method: Incision made by scalpel Amount/type of drainage: 5 cc purulent drainage Discharge - Discharge Clinical Impression: Abscess of left axilla Condition: Good Disposition: HOME, SELF-CARE Additional Instructions: You were seen for an abscess that required drainage. Please clean this area with soap and water twice daily and apply a topical antibiotic. Dress the area after each cleaning. Please return if you develop fever, vomiting, the pain at the site worsens, you notice spreading redness from the area, or you have any other symptoms that are concerning to you. For your pain: Take ibuprofen 600 mg and acetaminophen 1000 mg every 6 hours together as needed for pain. You may also apply ice packs to the area. Take antibiotics as prescribed until they are completed. Prescriptions: Sulfamethoxazole/Trimethoprim [Bactrim Ds Tablet] 2 tab PO BID #28 tablet
[2018-07-18 21:50] VITALS: BP 124/71
== END 2018-07-18 22:02 | disposition home or self-care (01) ==
LOC: ER 18:55
DX: L02.412 Cutaneous abscess of left axilla (principal); J45.909 Unspecified asthma, uncomplicated; F17.200 Nicotine dependence, unspecified, uncomplicated; Z86.14 Personal history of Methicillin resistant Staphylococcus aureus infection; Z88.5 Allergy status to narcotic agent
CPT/HCPCS: 99283; 96372; 10060; J1885

== ENCOUNTER 2018-09-15 17:47 | Emergency (ER) | payer SELFPAY ==
[2018-09-15] MEDS ORDERED: SULFAMETHOXAZOLE/TRIMETHOPRIM 800-160 MG TABLET PO ONE (19:00)
[2018-09-15] MEDS ORDERED: CEPHALEXIN 500 MG CAPSULE PO ONE (19:00)
[2018-09-15] MEDS ORDERED: CYCLOBENZAPRINE HCL 10 MG TABLET PO ONE (19:00)
[2018-09-15] MEDS ORDERED: OXYCODONE-ACETAMINOPHEN 5-325 MG TABLET PO ONE (19:00)
--- NOTE | 2018-09-15 19:08 | ER Document Report ---
ED General - General Chief Complaint: Leg Pain Stated Complaint: LEG AND KNEE PAIN/FINGER INJURY Time Seen by Provider: 09/15/18 18:43 Primary Care Provider: RUDDY JOSE DO [ACTIVE STAFF] - Follow up as needed Mode of Arrival: Ambulatory Information source: Patient Notes: 32-year-old male presented to ED for complaint of pain to his whole body. He states he has been working so much he hurts in his knees his arms legs his neck and his back. But he has not fallen or has any injuries. He states the main pain he has a suspended to the right middle finger. He states it is very swollen and painful. He does have a small abscess to the right middle finger. This was opened after cleaning well with Betadine it was opened with an 18-gauge needle. There was no obvious splinter and I will not take in the joint of a finger. A wound culture was sent of the drainage and patient was started on antibiotics. Patient has full range of motion to the finger but he states is very painful. TRAVEL OUTSIDE OF THE [place] IN LAST 30 DAYS: No - HPI Onset: Other - Chronic generalized pain due to working but he has an abscess to his right middle finger which is his main concern today Onset/Duration: Gradual Quality of pain: Pressure Severity: Severe Pain Level: 5 Associated symptoms: Body/muscle aches, Other - Abscess to the knuckle of the third finger on the right hand tender and fluctuant. Exacerbated by: Movement Relieved by: Denies Similar symptoms previously: Yes Recently seen / treated by doctor: No - Related Data Allergies/Adverse Reactions: hydrocodone bitartrate [From Vicodin] Allergy (Mild, Verified 09/15/18 17:50) upset stomach/hives/rash Past Medical History - General Information source: Patient - Social History Smoking Status: Current Every Day Smoker Cigarette use (# per day): Yes - Half pack per day Smoking Education Provided: Yes - 4 minutes Frequency of alcohol use: Occasional Drug Abuse: None Occupation: [employer] Lives with: Parents Family History: Reviewed & Not Pertinent Patient has suicidal ideation: No Patient has homicidal ideation: No - Past Medical History Cardiac Medical History: Reports: None Pulmonary Medical History: Reports: Hx Asthma EENT Medical History: Reports: None Neurological Medical History: Reports: None Endocrine Medical History: Reports: None Renal/ Medical History: Reports: None Malignancy Medical History: Reports None GI Medical History: Reports: None Musculoskeletal Medical History: Reports Hx Musculoskeletal Trauma - Facial bone fractures Skin Medical History: Reports Hx Cellulitis, Reports Hx MRSA Psychiatric Medical History: Reports: None Traumatic Medical History: Reports: Hx Fractures - Facial bones Infectious Medical History: Reports: Hx MRSA Past Surgical History: Reports: Hx Oral Surgery, Hx Orthopedic Surgery - right shoulder - Immunizations Immunizations up to date: No Hx Diphtheria, Pertussis, Tetanus Vaccination: No Review of Systems - Review of Systems Constitutional: No symptoms reported EENT: No symptoms reported Cardiovascular: No symptoms reported Respiratory: No symptoms reported Gastrointestinal: No symptoms reported Genitourinary: No symptoms reported Male Genitourinary: No symptoms reported Musculoskeletal: Muscle pain, Muscle stiffness Skin: Other - Abscess right middle finger Hematologic/Lymphatic: No symptoms reported Neurological/Psychological: No symptoms reported -: Yes All other systems reviewed and negative Physical Exam - Vital signs Vitals: Temp Pulse Resp BP Pulse Ox 97.8 F 81 18 121/76 100 09/15/18 17:51 09/15/18 17:51 09/15/18 17:51 09/15/18 17:51 09/15/18 17:51 Interpretation: Normal - General General appearance: Appears well, Alert - HEENT Head: Normocephalic, Atraumatic Eyes: Normal Pupils: PERRL - Respiratory Respiratory status: No respiratory distress Chest status: Nontender Breath sounds: Normal Chest palpation: Normal - Cardiovascular Rhythm: Regular Heart sounds: Normal auscultation Murmur: No - Abdominal Inspection: Normal Distension: No distension Bowel sounds: Normal Tenderness: Nontender Organomegaly: No organomegaly - Back Back: Normal, Nontender - Extremities General upper extremity: Normal inspection, Nontender, Normal color, Normal ROM, Normal temperature General lower extremity: Normal inspection, Nontender, Normal color, Normal ROM, Normal temperature, Normal weight bearing. No: Juancho's sign - Neurological Neuro grossly intact: Yes Cognition: Normal Orientation: AAOx4 [place] Coma Scale Eye Opening: Spontaneous [place] Coma Scale Verbal: Oriented [place] Coma Scale Motor: Obeys Commands [place] Coma Scale Total: 15 Speech: Normal Motor strength normal: LUE, RUE, LLE, RLE Sensory: Normal - Psychological Associated symptoms: Normal affect, Normal mood - Skin Skin Temperature: Warm Skin Moisture: Dry Skin Color: Normal Skin irregularity: Abscess Location of irregularity: Extremities - Right middle finger patient states there is a splint on it but because it is on the knuckle I did not search for the splinter. He has been instructed to follow-up with orthopedics. Irregularity with: Swelling, Tenderness, Warmth Course - Vital Signs Vital signs: Temp Pulse Resp BP Pulse Ox 98.6 F 83 18 122/71 99 09/15/18 20:14 09/15/18 20:14 09/15/18 20:14 09/15/18 20:14 09/15/18 20:14 Procedures - Incision and Drainage Right Finger 3rd digit Time completed: 19:00 Type: Simple Anesthetic type: Other - None mL's of anesthetic: 0 Blade size: Other I&D procedure: Betadine prep applied - 18-gauge needle, Sterile dressing applied Incision Method: Incision made with needle Amount/type of drainage: Moderate amount of purulent drainage Discharge - Discharge Clinical Impression: Generalized body aches, Abscess of right middle finger Condition: Stable Disposition: HOME, SELF-CARE Additional Instructions: ABSCESS: You have an abscess (boil). This a pus-forming infection, usually due to staph. Some boils may be left to drain on their own, but most require lancing. From the time the tender lump first appears, it may be three or four days before the abscess is ready to pedro. Local heat and rest help at this stage of treatment. An antibiotic may prevent spread of the infection. Once the abscess is opened, packing may be placed into it. This is done so pus is not sealed inside by premature closure of the cavity. The packing will be removed at your follow-up visit or you may be advised to remove it yourself at home. Sometimes this packing must be replaced a few times during healing. The wound will heal with surprisingly little scar. Depending on the size and location of an abscess, healing can take one to four weeks. You may shower and wash the area around the incision site two or three times a day. Antibiotics may be prescribed, but are usually not necessary after an abscess has been drained. If you develop fever, chills, worsening pain, or increasing swelling in the area, call the doctor or return immediately. Myalagia (Muscle Pain) Myalgia is pain in the muscles. We use the word myalgia to describe muscle pain where there's no history of injury, no known muscle disease, and the muscles are normal to examination. Myalgias can be a symptom of an acute illness, such as influenza, hepatitis, or any viral illness, especially with fever. Sometimes the muscle pain comes before any other symptoms. Myalgia can also be an early symptom of inflammatory muscle disease, such as lupus. If myalgia is accompanied by an acute illness that explains the muscle pain, then no further testing needs to be done. When there's no clear reason for the pain, tests may be done to see if there's an inflammatory or other disease of the muscles. The usual treatment for myalgias is anti-inflammatory medication, such as ibuprofen. Muscle aches may be soothed with a heating pad or hot compress. If muscles remain painful for more than a few days, you'll need testing and followup. Return if a muscle becomes swollen, red, or severely painful. POST INCISION AND DRAINAGE: You have had an incision made to allow drainage of an abscess. The incision must remain open so that pus and debris can drain from the wound. If the abscess cavity is large, packing is placed. This keeps the tissues from collapsing and trapping pus inside, while the body shrinks the cavity. The packing may need to be replaced every day or two. The physician will instruct you on the packing. Keep a bulky dressing over the area. Replace it if it becomes saturated with blood or pus. Do not disturb the packing (if present). You may shower and cleanse the area with gentle soap and warm water two or three times a day. Local warmth may be soothing, and may promote faster healing. Return if you develop high fever or chills, or if you note spreading redness, increasing swelling, or increasing tenderness. ORAL NARCOTIC MEDICATION: You have been given a Percocet for pain control. This medication is a narcotic. It's best taken with food, as nausea can result if taken on an empty stomach. Don't operate machinery or drive within six hours of taking this medication. Do not combine this medicine with alcohol, or with any medication which can cause sedation (such as cold tablets or sleeping pills) unless you get permission from the physician. Narcotics tend to cause constipation. If possible, drink plenty of fluids and eat a diet high in fiber and fruits. CEPHALEXIN: The antibiotic you've been prescribed is a member of the cephalosporin class. This type of antibiotic covers a wide variety of infections, including those of the skin, lungs, and urinary tract. It's useful for staph infections. This antibiotic is slightly similar to the penicillin family. In rare cases, a person who is allergic to penicillin will also be allergic to this medication. If you have had a severe allergic reaction to penicillin, and have not taken this antibiotic since that time, notify your doctor. Antibiotics which cover many germs ("broad spectrum" antibiotics) are more likely to cause diarrhea or "yeast" infections. Women prone to vaginal yeast problems may suffer an attack after taking this antibiotic. In infants, oral thrush (white spots "stuck" on the cheek) or yeast diaper rash may result. See your doctor if these problems occur. Call at once if you develop itching, hives, shortness of breath, or lightheadedness. TRIMETHOPRIM-SULFA: You have been given a prescription for trimethoprim-sulfa (TMS, Septra, Bactrim). This is a combination antibiotic of the sulfa class, often used for urinary tract infections, middle ear infections, bronchitis, shigella intestinal infection, and Pneumocystis pneumonia. TMS is usually well-tolerated. Occasional side effects include nausea and decreased appetite. Septra is not recommended for infants less than two months of age. Do not take this medication if you have experienced severe side effects or allergy to sulfa medicine. You should stop this medicine at once and contact your physician if you develop any rash, joint pain, shortness of breath, bruising, or jaundice (yellow color in the skin), or if you develop any other new or unusual symptoms. Muscle Relaxers Muscle relaxing medications are usually prescribed for acute muscle spasm or injury to the neck and back. They are often combined with antiinflammatory pain medication for increased relief. You may stop the muscle relaxer when the pain and stiffness have improved. Start the medication again if spasms recur. Muscle relaxers may cause drowsiness, especially with the first dose. Do not operate machinery or drive while under the effects of the medication. Most muscle relaxers last up to 24 hours. Do not combine the medication with alcohol. FOLLOW-UP CARE: Most simple abscesses will not require a follow up visit. If you had packing placed in the abscess, remove it as instructed by the physician. If you have been referred to a physician for follow-up care, call the physicians office for an appointment as you were instructed or within the next two days. If you experience worsening or a significant change in your symptoms, return to the Emergency Department at any time for re-evaluation. Prescriptions: Cephalexin Monohydrate [Keflex 500 mg Capsule] 500 mg PO QID #20 capsule Cyclobenzaprine HCl [Flexeril 10 mg Tablet] 10 mg PO TIDP PRN #15 tab PRN Reason: Sulfamethoxazole/Trimethoprim [Bactrim Ds Tablet] 1 each PO BID #20 tablet Forms: Smoking Cessation Education, Return to Work Referrals: RUDDY JOSE DO [ACTIVE STAFF] - Follow up as needed
[2018-09-15 20:14] VITALS: BP 122/71
== END 2018-09-15 20:14 | disposition home or self-care (01) ==
LOC: ER 17:47
DX: L02.511 Cutaneous abscess of right hand (principal); M25.561 Pain in right knee; M25.562 Pain in left knee; M79.604 Pain in right leg; M79.605 Pain in left leg; M79.601 Pain in right arm; M79.602 Pain in left arm; M54.9 Dorsalgia, unspecified; M79.10 Myalgia, unspecified site; F17.210 Nicotine dependence, cigarettes, uncomplicated; Z71.6 Tobacco abuse counseling; Z88.5 Allergy status to narcotic agent; J45.909 Unspecified asthma, uncomplicated; Z86.14 Personal history of Methicillin resistant Staphylococcus aureus infection
CPT/HCPCS: 87070; 87077; 87186; 87205; 99283; 99406

== ENCOUNTER 2018-10-14 16:43 | Emergency (ER) | payer SELFPAY ==
--- NOTE | 2018-10-14 17:45 | ER Document Report ---
ED Medical Screen (RME) - General Chief Complaint: Abscess Stated Complaint: SKIN PROBLEM Time Seen by Provider: 10/14/18 17:43 Mode of Arrival: Ambulatory Information source: Patient Notes: Patient presents complaining of left-sided chest pain this been off and on for the past week. Patient does have a tender lump to the left breast area and is concerned about possible abscess. Patient states that earlier today he had a shooting pain that extended beyond the area of the tender lump. Patient denies any cough cold symptoms or shortness of breath. I have greeted and performed a rapid initial assessment of this patient. A comprehensive ED assessment and evaluation of the patient, analysis of test results and completion of the medical decision making process will be conducted by additional ED providers. TRAVEL OUTSIDE OF THE [place] IN LAST 30 DAYS: No - Related Data Allergies/Adverse Reactions: hydrocodone bitartrate [From Vicodin] Allergy (Mild, Verified 09/15/18 17:50) upset stomach/hives/rash Past Medical History Pulmonary Medical History: Reports: Hx Asthma Denies: Hx Tuberculosis Renal/ Medical History: Denies: Hx Peritoneal Dialysis Musculoskeltal Medical History: Reports Hx Musculoskeletal Trauma - Facial bone fractures Skin Medical History: Reports Hx Cellulitis, Reports Hx MRSA Traumatic Medical History: Reports: Hx Fractures - Facial bones Infectious Medical History: Reports: Hx MRSA Past Surgical History: Reports: Hx Oral Surgery, Hx Orthopedic Surgery - right shoulder - Immunizations Immunizations up to date: No Hx Diphtheria, Pertussis, Tetanus Vaccination: No Physical Exam - Vital signs Vitals: Temp Pulse Resp BP Pulse Ox 98.7 F 97 18 121/86 H 100 10/14/18 16:50 10/14/18 16:50 10/14/18 16:50 10/14/18 16:50 10/14/18 16:50 - General Notes: Mobile tender lesion to left breast area and left axilla Course - Vital Signs Vital signs: Temp Pulse Resp BP Pulse Ox 98.7 F 97 18 121/86 H 100 10/14/18 16:50 10/14/18 16:50 10/14/18 16:50 10/14/18 16:50 10/14/18 16:50
[2018-10-14] MEDS ORDERED: KETOROLAC TROMETHAMINE 60 MG/2 ML SDV IM ONE (23:11)
[2018-10-14] MEDS ORDERED: SULFAMETHOXAZOLE/TRIMETHOPRIM 800-160 MG TABLET PO ONE (23:27)
--- NOTE | 2018-10-14 23:30 | ER Document Report ---
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 States that these areas started several days ago to be getting progressively larger over that time. Describes throbbing aching, constant pain to the areas. Touch the areas worsens the pain. Nothing improves the pain. States this feels identical to when he has had abscesses in the past. Denies fever or constitutional symptoms. Has not seen his primary care physician regarding today's concerns. Is requesting Percocet for discharge home. TRAVEL OUTSIDE OF THE [place] IN LAST 30 DAYS: No - Related Data Allergies/Adverse Reactions: hydrocodone bitartrate [From Vicodin] Allergy (Mild, Verified 09/15/18 17:50) upset stomach/hives/rash Past Medical History - General Information source: Patient - Social History Smoking Status: Current Every Day Smoker Frequency of alcohol use: None Drug Abuse: None Family History: Reviewed & Not Pertinent Patient has suicidal ideation: No Patient has homicidal ideation: No Pulmonary Medical History: Reports: Hx Asthma Denies: Hx Tuberculosis Renal/ Medical History: Denies: Hx Peritoneal Dialysis Musculoskeletal Medical History: Reports Hx Musculoskeletal Trauma - Facial bone fractures Skin Medical History: Reports Hx Cellulitis, Reports Hx MRSA Traumatic Medical History: Reports: Hx Fractures - Facial bones Infectious Medical History: Reports: Hx MRSA Past Surgical History: Reports: Hx Oral Surgery, Hx Orthopedic Surgery - right shoulder - Immunizations Immunizations up to date: No Hx Diphtheria, Pertussis, Tetanus Vaccination: No Review of Systems - Review of Systems Notes: Constitutional: Negative for fever. HENT: Negative for sore throat. Eyes: Negative for visual changes. Cardiovascular: Negative for chest pain. Respiratory: Negative for shortness of breath. Gastrointestinal: Negative for abdominal pain, vomiting or diarrhea. Genitourinary: Negative for dysuria. Musculoskeletal: Negative for back pain. Skin: Positive for multiple abscesses Neurological: Negative for headaches, weakness or numbness. 10 point ROS negative except as marked above and in HPI. Physical Exam - Vital signs Vitals: Temp Pulse Resp BP Pulse Ox 98.7 F 97 18 121/86 H 100 10/14/18 16:50 10/14/18 16:50 10/14/18 16:50 10/14/18 16:50 10/14/18 16:50 Interpretation: Normal Notes: PHYSICAL EXAMINATION: GENERAL: Well-appearing, well-nourished and in no acute distress. HEAD: Atraumatic, normocephalic. EYES: sclera anicteric, conjunctiva are normal. ENT: Moist mucous membranes. NECK: Normal range of motion LUNGS: Normal work of breathing HEART: 2+ radial pulses bilaterally EXTREMITIES: no pitting or edema. No cyanosis. NEUROLOGICAL: No focal neurological deficits. Moves all extremities spontaneously and on command. PSYCH: Normal mood, normal affect. SKIN: Warm, Dry, normal turgor, there is a 0.25 x 0.25 cm area of induration just above the left nipple. There is likewise 0.25 x 0.25 cm area of induration and fluctuance left mid axilla Course - Re-evaluation Re-evalutation: 10/14/18 23:29 Patient presents with a small abscess above the left nipple as well as in the left axilla. These areas were incised and drained without complication, small amount of purulent material expressed from each. Patient was started on trimethoprim sulfamethoxazole and bleach baths were advised. Vitals unrema rkable, no indication for labs or imaging. Patient does not meet sepsis criteria. No evidence of associated cellulitis. At this time will discharge with return precautions and follow-up recommendations. Verbal discharge instructions given a the bedside and opportunity for questions given. Medication warnings reviewed. Patient is in agreement with this plan and has verbalized understanding of return precautions and the need for primary care follow-up in the next 24-72 hours. - Vital Signs Vital signs: Temp Pulse Resp BP Pulse Ox 97.9 F 63 16 111/69 100 10/14/18 23:41 10/14/18 23:41 10/14/18 23:41 10/14/18 23:41 10/14/18 23:41 Procedures - Incision and Drainage Left axilla Type: Simple Anesthetic type: 1% Lidocaine Blade size: 11 I&D procedure: Chlorprep applied Incision Method: Incision made by scalpel Amount/type of drainage: 0.5 cc purulent drainage Left chest wall Type: Simple Anesthetic type: 1% Lidocaine mL's of anesthetic: 1 Blade size: 11 I&D procedure: Chlorprep applied Incision Method: Incision made by scalpel Amount/type of drainage: 0.5 cc purulent drainage Discharge - Discharge Clinical Impression: Abscess of multiple sites Condition: Good Disposition: HOME, SELF-CARE Additional Instructions: You were seen for an abscess that required drainage. Please clean this area with soap and water twice daily and apply a topical antibiotic. Dress the area after each cleaning. Please return if you develop fever, vomiting, the pain at the site worsens, you notice spreading redness from the area, or you have any other symptoms that are concerning to you. Given the frequency of your abscesses I would recommend that you begin taking a bleach bath every 3 weeks. This consists of a full tub of warm water with 1/4 cup of household bleach. Soak in the tub for 20 minutes. Repeat this every 3 weeks to try to reduce the recurrence of your absence frequency. Prescriptions: Sulfamethoxazole/Trimethoprim [Bactrim Ds Tablet] 2 tab PO BID #28 tablet
[2018-10-14 23:42] VITALS: BP 111/69
== END 2018-10-14 23:42 | disposition home or self-care (01) ==
LOC: ER 16:43
DX: L02.412 Cutaneous abscess of left axilla (principal); L02.213 Cutaneous abscess of chest wall; F17.200 Nicotine dependence, unspecified, uncomplicated; J45.909 Unspecified asthma, uncomplicated; Z86.14 Personal history of Methicillin resistant Staphylococcus aureus infection; Z88.5 Allergy status to narcotic agent
CPT/HCPCS: 99283; 96372; 10061; J1885

== ENCOUNTER 2018-11-21 12:04 | Emergency (ER) | payer SELFPAY ==
--- NOTE | 2018-11-21 13:46 | ER Document Report ---
ED Medical Screen (RME) - General Chief Complaint: Leg Pain Stated Complaint: LEFT LEG PAIN Time Seen by Provider: 11/21/18 13:42 Mode of Arrival: Ambulatory Information source: Patient Notes: Patient presents to the emergency department with complaints of left lower leg pain post insect bite. Patient does have a history of MRSA. Reports pain to touch pain to walk. Patient does not know what bit him. Patient has dark circular area surrounded by erythema and some warmth to his left lateral leg. No fever vomiting or diarrhea. I have greeted and performed a rapid initial assessment of this patient. A comprehensive ED assessment and evaluation of the patient, analysis of test results and completion of the medical decision making process will be conducted by additional ED providers. Dictation of this chart was performed using voice recognition software; therefore, there may be some unintended grammatical errors. TRAVEL OUTSIDE OF THE [place] IN LAST 30 DAYS: No - Related Data Allergies/Adverse Reactions: hydrocodone bitartrate [From Vicodin] Allergy (Mild, Verified 11/21/18 12:09) upset stomach/hives/rash Past Medical History Pulmonary Medical History: Reports: Hx Asthma Denies: Hx Tuberculosis Renal/ Medical History: Denies: Hx Peritoneal Dialysis Musculoskeltal Medical History: Reports Hx Musculoskeletal Trauma - Facial bone fractures Skin Medical History: Reports Hx Cellulitis, Reports Hx MRSA Traumatic Medical History: Reports: Hx Fractures - Facial bones Infectious Medical History: Reports: Hx MRSA Past Surgical History: Reports: Hx Oral Surgery, Hx Orthopedic Surgery - right shoulder - Immunizations Immunizations up to date: No Hx Diphtheria, Pertussis, Tetanus Vaccination: No Physical Exam - Vital signs Vitals: Temp Pulse Resp BP Pulse Ox 98.0 F 88 16 108/66 97 11/21/18 12:13 11/21/18 12:13 11/21/18 12:13 11/21/18 12:13 11/21/18 12:13 Course - Vital Signs Vital signs: Temp Pulse Resp BP Pulse Ox 98.0 F 88 16 108/66 97 11/21/18 12:13 11/21/18 12:13 11/21/18 12:13 11/21/18 12:13 11/21/18 12:13
[2018-11-21] MEDS ORDERED: IBUPROFEN 800 MG TABLET PO ONE (13:47)
--- NOTE | 2018-11-21 15:04 | ER Document Report ---
ED General - General Chief Complaint: Leg Pain Stated Complaint: LEFT LEG PAIN Time Seen by Provider: 11/21/18 13:42 Mode of Arrival: Ambulatory TRAVEL OUTSIDE OF THE [place] IN LAST 30 DAYS: No - HPI Notes: 32-year-old male to the emergency department with complaints of left lower leg swelling, erythema, and pain for the past 2 days. States that he has had abscesses before and this feels similar. States the area is not draining. States he may have been bitten by an insect but he is unsure. States he has a history of MRSA. Denies fevers, chills, nausea, vomiting, diarrhea, chest pain, shortness of breath. States he has been taking Motrin without relief. - Related Data Allergies/Adverse Reactions: hydrocodone bitartrate [From Vicodin] Allergy (Mild, Verified 11/21/18 12:09) upset stomach/hives/rash Past Medical History - General Information source: Patient - Social History Smoking Status: Current Every Day Smoker Chew tobacco use (# tins/day): No Frequency of alcohol use: Social Drug Abuse: None Lives with: Alone Family History: Reviewed & Not Pertinent Patient has suicidal ideation: No Patient has homicidal ideation: No Pulmonary Medical History: Reports: Hx Asthma Denies: Hx Tuberculosis Renal/ Medical History: Denies: Hx Peritoneal Dialysis Musculoskeletal Medical History: Reports Hx Musculoskeletal Trauma - Facial bone fractures Skin Medical History: Reports Hx Cellulitis, Reports Hx MRSA Traumatic Medical History: Reports: Hx Fractures - Facial bones Infectious Medical History: Reports: Hx MRSA Past Surgical History: Reports: Hx Oral Surgery, Hx Orthopedic Surgery - right shoulder - Immunizations Immunizations up to date: No Hx Diphtheria, Pertussis, Tetanus Vaccination: No Review of Systems - Review of Systems Constitutional: denies: Chills, Fever EENT: No symptoms reported Cardiovascular: denies: Chest pain, Syncope, Dizziness, Lightheaded Respiratory: denies: Cough, Short of breath Gastrointestinal: denies: Abdominal pain, Diarrhea, Nausea, Vomiting Genitourinary: No symptoms reported Musculoskeletal: Leg swelling, Other - Left lower leg pain and swelling, see skin Skin: Other - Redness and pain to the left lower extremity with central lesion -: Yes All other systems reviewed and negative Physical Exam - Vital signs Vitals: Temp Pulse Resp BP Pulse Ox 98.0 F 88 16 108/66 97 11/21/18 12:13 11/21/18 12:13 11/21/18 12:13 11/21/18 12:13 11/21/18 12:13 Interpretation: Normal - General General appearance: Appears well In distress: Mild Notes: mild Pain distress - HEENT Head: Normocephalic, Atraumatic Eyes: Normal Pupils: PERRL - Respiratory Respiratory status: No respiratory distress Chest status: Nontender Breath sounds: Normal Chest palpation: Normal - Cardiovascular Rhythm: Regular Heart sounds: Normal auscultation Murmur: No - Abdominal Inspection: Normal Distension: No distension Bowel sounds: Normal Tenderness: Nontender Organomegaly: No organomegaly - Extremities General lower extremity: Tender, Edema, Normal ROM, Normal weight bearing, Other - Tenderness and edema to the left lower extremity, see skin. No: Normal color - Neurological Neuro grossly intact: Yes Cognition: Normal Orientation: AAOx4 Lexis Coma Scale Eye Opening: Spontaneous Lexis Coma Scale Verbal: Oriented Junction Coma Scale Motor: Obeys Commands Junction Coma Scale Total: 15 Speech: Normal Motor strength normal: LUE, RUE, LLE, RLE Sensory: Normal - Psychological Associated symptoms: Normal affect, Normal mood - Skin Skin Temperature: Warm Skin Moisture: Dry Skin Color: Other - There is a area to the anterior left calf consistent with a cellulitis with a central darkened lesion without any drainage. There is no active drainage. There is no circumferential erythema. There is noted induration to the area of erythema Course - Vital Signs Vital signs: Temp Pulse Resp BP Pulse Ox 98.1 F 65 18 124/73 100 11/21/18 19:03 11/21/18 19:03 11/21/18 19:03 11/21/18 19:03 11/21/18 19:03 - Transfer of Care Notes: 11/21/18 impression: Left lower leg cellulitis and likely evolving abscess. Attempted I&D but did not get any purulence back we will place patient on Bactrim and Keflex. Will have him return in 2 days for wound check and packing change. He agrees with the plan. Procedures - Incision and Drainage Left Lower Leg Time completed: 19:10 Type: Complex Anesthetic type: 1% Lidocaine mL's of anesthetic: 5 Blade size: 11 I&D procedure: Betadine prep applied, Sterile dressing applied Incision Method: Incision made by scalpel Amount/type of drainage: scant, bloody Notes: 11/21/18 21:01 wound was probed and explored, 1/4 inch packing was placed. Discharge - Discharge Clinical Impression: Abscess of left leg, Left leg cellulitis Condition: Good Disposition: HOME, SELF-CARE Instructions: Abscess ([facility] Additional Instructions: Follow up in 2 days for wound check. Complete antibiotics. Apply warm comp resses. Return if any worsening symptoms in the next 24 hours to include fever, worsening redness, worsening pain or any other complaints. Follow up with [facility] Prescriptions: Cephalexin Monohydrate [Keflex 500 mg Capsule] 500 mg PO QID #40 capsule Oxycodone HCl/Acetaminophen [Percocet 5-325 mg Tablet] 1 tab PO Q6H PRN #6 tablet PRN Reason: Sulfamethoxazole/Trimethoprim [Bactrim Ds Tablet] 1 each PO BID #20 tablet
[2018-11-21] MEDS ORDERED: TRAMADOL HCL 50 MG TABLET PO ONE (15:23)
[2018-11-21] MEDS ORDERED: OXYCODONE-ACETAMINOPHEN 5-325 MG TABLET PO ONE (18:06)
[2018-11-21 19:05] VITALS: BP 124/73
== END 2018-11-21 19:05 | disposition home or self-care (01) ==
LOC: ER 12:04
DX: L02.416 Cutaneous abscess of left lower limb (principal); L03.116 Cellulitis of left lower limb; F17.200 Nicotine dependence, unspecified, uncomplicated; J45.909 Unspecified asthma, uncomplicated; Z86.14 Personal history of Methicillin resistant Staphylococcus aureus infection; Z88.6 Allergy status to analgesic agent
CPT/HCPCS: 99282; 10060; A6266

== ENCOUNTER 2019-02-14 09:12 | Emergency (ER) | payer SELFPAY ==
[2019-02-14 09:21] VITALS: BP 139/84
[2019-02-14] MEDS ORDERED: CEPHALEXIN 500 MG CAPSULE PO ONE (09:58)
[2019-02-14] MEDS ORDERED: SULFAMETHOXAZOLE/TRIMETHOPRIM 800-160 MG TABLET PO ONE (09:58)
--- NOTE | 2019-02-14 10:01 | ER Document Report ---
HPI - HPI Patient complains to provider of: Skin infection Time Seen by Provider: 02/14/19 09:46 Onset: Last week Onset/Duration: Better Quality of pain: Achy Pain Level: 5 Context: Patient presents complaining of infection to right elbow for the past week. Patient states area was more swollen and has decreased and swelling. Patient states he came today as it was convenient with his work schedule. Patient denies any fever. Patient does report history of frequent abscesses. Associated Symptoms: denies: Fever Exacerbated by: Denies Relieved by: Denies Similar symptoms previously: Yes Recently seen / treated by doctor: No - ROS ROS below otherwise negative: Yes Systems Reviewed and Negative: Yes All other systems reviewed and negative - CONSTITUTIONAL Constitutional: DENIES: Fever, Chills - REPRODUCTIVE Reproductive: DENIES: : - MUSCULOSKELETAL Musculoskeletal: REPORTS: Extremity pain - DERM Skin Color: Erythema Notes: Insect bite or abscess Past Medical History - General Information source: Patient - Social History Smoking Status: Current Every Day Smoker Smoking Education Provided: Yes Frequency of alcohol use: Occasional Drug Abuse: None 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 Family History: Reviewed & Not Pertinent Patient has suicidal ideation: No Patient has homicidal ideation: No Pulmonary Medical History: Reports: Hx Asthma Denies: Hx Tuberculosis Renal/ Medical History: Denies: Hx Peritoneal Dialysis Musculoskeletal Medical History: Reports Hx Musculoskeletal Trauma - Facial bone fractures Skin Medical History: Reports Hx Cellulitis, Reports Hx MRSA Traumatic Medical History: Reports: Hx Fractures - Facial bones Infectious Medical History: Reports: Hx MRSA Past Surgical History: Reports: Hx Oral Surgery, Hx Orthopedic Surgery - right shoulder - Immunizations Immunizations up to date: No Hx Diphtheria, Pertussis, Tetanus Vaccination: No Vertical Provider Document - CONSTITUTIONAL Agree With Documented VS: Yes Exam Limitations: No Limitations General Appearance: WD/WN, No Apparent Distress - INFECTION CONTROL TRAVEL OUTSIDE OF THE [place] IN LAST 30 DAYS: No - HEENT HEENT: Atraumatic, Normocephalic - NECK Neck: Normal Inspection - RESPIRATORY Respiratory: No Respiratory Distress - CARDIOVASCULAR Pulses: Normal: Radial - MUSCULOSKELETAL/EXTREMETIES Musculoskeletal/Extremeties: MAEW, FROM, Non-Tender - NEURO Level of Consciousness: Awake, Alert, Appropriate Motor/Sensory: No Motor Deficit - DERM Integumentary: Warm, Dry Notes: Patient with crusted 1 cm lesion over right lateral epicondyles with surrounding erythema. Patient with full range of motion to the joint. No fluctuance, no induration, no drainable abscess. Course - Vital Signs Vital signs: Temp Pulse Resp BP Pulse Ox 98.1 F 93 16 139/84 H 99 02/14/19 09:20 02/14/19 09:20 02/14/19 09:20 02/14/19 09:20 02/14/19 09:20 Discharge - Discharge Clinical Impression: Cellulitis Qualifiers: Site of cellulitis: extremity Site of cellulitis of extremity: upper extremity Laterality: right Qualified Code(s): L03.113 - Cellulitis of right upper limb Condition: Stable Disposition: HOME, SELF-CARE Instructions: Cephalexin ([facility]), MRSA Cellulitis ([facility]), Trimethoprim-Sulfa ([facility]) Additional Instructions: Return immediately for any new or worsening symptoms Followup with your primary care provider, call tomorrow to make a followup appointment Apply warm compresses to the area Keep wound covered when you are at work Prescriptions: Sulfamethoxazole/Trimethoprim [Bactrim Ds Tablet] 1 each PO BID #10 tablet Mupirocin [Bactroban 2% Ointment 22 gm] 1 applic TP TID #22 gm Cephalexin Monohydrate [Keflex 500 mg Capsule] 500 mg PO Q6H 5 Days capsule Forms: Smoking Cessation Education Referrals: [facility] [Provider Group] - Follow up as needed
== END 2019-02-14 10:23 | disposition home or self-care (01) ==
LOC: ER 09:12
DX: L03.113 Cellulitis of right upper limb (principal); F17.210 Nicotine dependence, cigarettes, uncomplicated; Z86.14 Personal history of Methicillin resistant Staphylococcus aureus infection
CPT/HCPCS: 99282

== ENCOUNTER 2019-02-15 08:06 | Emergency (ER) | payer SELFPAY ==
[2019-02-15] MEDS ORDERED: OXYCODONE-ACETAMINOPHEN 5-325 MG TABLET PO ONE (09:44)
[2019-02-15] MEDS ORDERED: SULFAMETHOXAZOLE/TRIMETHOPRIM 800-160 MG TABLET PO ONE (09:45)
[2019-02-15] MEDS ORDERED: LIDOCAINE 1% INJ (10 MG/ML) 10 ML MDV INJ ONE ×2 (09:45→10:39)
[2019-02-15] MEDS ORDERED: CEFTRIAXONE INJ 1000 MG VIAL IM ONE (09:45)
--- NOTE | 2019-02-15 09:49 | ER Document Report ---
HPI - HPI Patient complains to provider of: abscess R arm Time Seen by Provider: 02/15/19 08:27 Pain Level: 5 Context: 33-year-old male with history of frequent abscesses and MRSA presents to the emergency department with an abscess over the right brachioradialis muscle. Patient was seen here yesterday and there was no drainable abscess. Patient states it got acutely worse in the 24-hour interval and pain has increased significantly. 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 - CONSTITUTIONAL Constitutional: DENIES: Fever, Chills - EENT EENT: DENIES: Sore Throat, Ear Pain, Eye problems - NEURO Neurology: DENIES: Headache, Weakness, Vision blurred, Dizzinesss / Vertigo - CARDIOVASCULAR Cardiovascular: DENIES: Chest pain - RESPIRATORY Respiratory: DENIES: Trouble Breathing, Coughing - GASTROINTESTINAL Gastrointestinal: DENIES: Abdominal Pain, Black / Bloody Stools - URINARY Urinary: DENIES: Dysuria, Urgency, Frequency - REPRODUCTIVE Reproductive: DENIES: : - MUSCULOSKELETAL Musculoskeletal: REPORTS: Extremity pain - right arm Past Medical History - Social History Smoking Status: Current Every Day Smoker Chew tobacco use (# tins/day): No Frequency of alcohol use: Occasional Drug Abuse: None Family History: Reviewed & Not Pertinent Patient has suicidal ideation: No Patient has homicidal ideation: No Pulmonary Medical History: Reports: Hx Asthma Denies: Hx Tuberculosis Renal/ Medical History: Denies: Hx Peritoneal Dialysis Musculoskeletal Medical History: Reports Hx Musculoskeletal Trauma - Facial bone fractures Skin Medical History: Reports Hx Cellulitis, Reports Hx MRSA Traumatic Medical History: Reports: Hx Fractures - Facial bones Infectious Medical History: Reports: Hx MRSA Past Surgical History: Reports: Hx Oral Surgery, Hx Orthopedic Surgery - right shoulder - Immunizations Immunizations up to date: No Hx Diphtheria, Pertussis, Tetanus Vaccination: No Vertical Provider Document - CONSTITUTIONAL Notes: PHYSICAL EXAMINATION: Reviewed vital signs and charting by RN GENERAL: Alert, interacts well. No acute distress. HEAD: Normocephalic, atraumatic. EYES: Pupils equal and round. Extraocular movements intact. ENT: Oral mucosa moist, tongue midline. NECK: Full range of motion. Trachea midline. LUNGS: Clear to auscultation bilaterally, no wheezes, rales, or rhonchi. No respiratory distress. HEART: Regular rate and rhythm. No murmur ABDOMEN: soft, non-tender. No distention. Bowel sounds present EXTREMITIES: Moves all 4 extremities spontaneously. No edema, No cyanosis. PSYCH: Normal affect, normal mood. SKIN: Warm, dry, normal turgor. 1 cm abscess over the head of the brachioradialis area with skin breakdown and surrounding erythema, there is edema extending down approximately 4 inches that is well-defined. - INFECTION CONTROL TRAVEL OUTSIDE OF THE [place] IN LAST 30 DAYS: No Course - Re-evaluation Re-evalutation: 02/15/19 11:00 Overall well-appearing, afebrile, nontoxic. Symptoms consistent with an abscess and cellulitis. I performed incision and drainage and there was minimal purulent drainage from the site. He received Rocephin 1 g IM and a dose of Bactrim here in the emergency department. I instructed patient to fill his prescription and start taking his antibiotics. Patient understands plan is stable for discharge. Strict return precautions given. - Vital Signs Vital signs: Temp Pulse Resp BP Pulse Ox 98.6 F 113 H 18 123/88 H 100 02/15/19 08:10 02/15/19 08:10 02/15/19 08:10 02/15/19 08:10 02/15/19 08:10 Procedures - Incision and Drainage Right Arm Type: Simple Anesthetic type: 1% Lidocaine w/epi Blade size: 11 I&D procedure: Betadine prep applied Incision Method: Incision made by scalpel Discharge - Discharge Clinical Impression: Abscess Cellulitis Qualifiers: Site of cellulitis: extremity Site of cellulitis of extremity: upper extremity Laterality: right Qualified Code(s): L03.113 - Cellulitis of right upper limb Condition: Good Disposition: HOME, SELF-CARE Additional Instructions: You were seen for an abscess that required drainage. Please clean this area with soap and water twice daily and apply a topical antibiotic. Dress the area after each cleaning. The rash is likely due to infection of your skin. You need to take the antibiotics as prescribed. Do not stop even if the rash goes away until you have completed all the antibiotics. TYou need to return to emergency department if the redness spreads outside of this area by more than 2 cm in any direction. You should also return if you develop fevers with temperature greater than 101, persistent vomiting, worsening pain, or have any other symptoms that are concerning to you.
[2019-02-15 12:17] VITALS: BP 113/55
== END 2019-02-15 12:17 | disposition home or self-care (01) ==
LOC: ER 08:06
DX: L02.413 Cutaneous abscess of right upper limb (principal); L03.113 Cellulitis of right upper limb; Z86.14 Personal history of Methicillin resistant Staphylococcus aureus infection; R68.83 Chills (without fever); M79.601 Pain in right arm; F17.200 Nicotine dependence, unspecified, uncomplicated; J45.909 Unspecified asthma, uncomplicated
CPT/HCPCS: 99282; 96372; 10060; J0696

== ENCOUNTER 2019-05-14 09:37 | Emergency (ER) | payer SELFPAY ==
[2019-05-14] MEDS ORDERED: LIDOCAINE 1% INJ-PF (10 MG/ML) 30 ML SDV INJ ONE (10:00)
[2019-05-14] MEDS ORDERED: IBUPROFEN 800 MG TABLET PO ONE (10:00)
--- NOTE | 2019-05-14 10:04 | ER Document Report ---
HPI - HPI Time Seen by Provider: 05/14/19 09:56 Pain Level: 3 Context: Patient is a 33-year-old male who presents emergency department with a chief complaint of abscess. Patient reports having an abscess underneath the right axilla for about 1 month that has continually gotten bigger. Patient reports this is the size of a quarter. Patient denies drainage. Patient reports he has had multiple abscesses in this location that do require incision and drainage. 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 Patient denies fever. Patient reports he does smoke 1 pack of cigarettes over a 2-day., Is a social drinker and denies recreational drug use. - REPRODUCTIVE Reproductive: DENIES: : Past Medical History - General Information source: Patient - Social History Smoking Status: Current Every Day Smoker Chew tobacco use (# tins/day): No Frequency of alcohol use: None Drug Abuse: None Lives with: Family Family History: Reviewed & Not Pertinent Patient has suicidal ideation: No Patient has homicidal ideation: No - Past Medical History Cardiac Medical History: Reports: None Pulmonary Medical History: Reports: Hx Asthma Denies: Hx Tuberculosis EENT Medical History: Reports: None Neurological Medical History: Reports: None Endocrine Medical History: Reports: None Renal/ Medical History: Reports: None. Denies: Hx Peritoneal Dialysis Malignancy Medical History: Reports None GI Medical History: Reports: None Musculoskeletal Medical History: Reports Hx Musculoskeletal Trauma - Facial bone fractures Skin Medical History: Reports Hx Cellulitis, Reports Hx MRSA Psychiatric Medical History: Reports: None Traumatic Medical History: Reports: Hx Fractures - Facial bones Infectious Medical History: Reports: Hx MRSA Past Surgical History: Reports: Hx Oral Surgery, Hx Orthopedic Surgery - right shoulder - Immunizations Immunizations up to date: No Hx Diphtheria, Pertussis, Tetanus Vaccination: No Vertical Provider Document - CONSTITUTIONAL Agree With Documented VS: Yes Exam Limitations: No Limitations General Appearance: No Apparent Distress - INFECTION CONTROL TRAVEL OUTSIDE OF THE [place] IN LAST 30 DAYS: No - HEENT HEENT: Atraumatic, Normal ENT Exam, Normocephalic, PERRLA - NECK Neck: Normal Inspection - RESPIRATORY Respiratory: Breath Sounds Normal, No Respiratory Distress - CARDIOVASCULAR Cardiovascular: Regular Rate, Regular Rhythm - GI/ABDOMEN Gastrointestinal: Abdomen Soft, Abdomen Non-Tender, Normal Bowel Sounds - MUSCULOSKELETAL/EXTREMETIES Musculoskeletal/Extremeties: FROM, Non-Tender - NEURO Level of Consciousness: Awake, Alert, Appropriate - DERM Integumentary: Abscess Notes: [id number] abscess to right axilla, another 0.5cmx0.5cm abscess noted underneath axilla as well. + tenderness to palpation, no drainage no fluctuation. Course - Re-evaluation Re-evalutation: 05/14/19 10:57 Patient asked multiple times if he can have a prescription for Percocet. I did inform the patient that I will give ibuprofen while here in the ER and a prescription for Ultram. Patient reports he is always had to return due to the severe pain. I did inform the patient a few Ultram will be given but he does need to ultimately take ibuprofen and his antibiotics to prevent worsening of infection as this will help with his discomfort and to use warm compresses. Patient to return if symptoms change or worsen. 05/14/19 11:00 Was brought in the room for a second time as the patient reports that he is unhappy that he is not getting Percocet. I did inform the patient that I do not want to significantly mask his discomfort and that if his pain is getting worse and the redness and swelling underneath the right arm is getting worse he does need to return as he is at significant risk for infection due to his history of MRSA. I did inform the patient once again he ultimately needs to take his oral antibiotics as prescribed and use [id number] ibuprofen. 05/14/19 11:28 At time of discharge patient was not tachycardic, febrile or hypotensive. A gauze dressing and tape was placed to the wound as I did inform the patient and will continue to lose and drained throughout the day as to be expected. - Vital Signs Vital signs: Temp Pulse Resp BP Pulse Ox 98.7 F 92 16 129/73 H 100 05/14/19 09:56 05/14/19 09:56 05/14/19 09:56 05/14/19 09:56 05/14/19 09:56 Procedures - Incision and Drainage Right Arm Time completed: 10:40 - Right Axilla Type: Simple Anesthetic type: 1% Lidocaine mL's of anesthetic: 5 Blade size: 11 I&D procedure: Betadine prep applied Incision Method: Incision made by scalpel Notes: 05/14/19 10:55 1 cm incision was made in the center of the abscess (2cm x 2 cm). There was a small amount of purulent drainage removed. I did investigate the wound which did not reveal any inoculations. No packing is necessary at this time. Patient also had a very small 0.5 cm x 0.5 cm abscess noted underneath the right axilla. This was injected with 1 cc of lidocaine and incised with a very small amount of purulent drainage. Discharge - Discharge Clinical Impression: Abscess Condition: Stable Disposition: HOME, SELF-CARE Additional Instructions: *Today was seen in the emergency department for an abscess. This was cut and drained. Fortunately this did not require a packing. Please continue to use warm compresses to the site and take the 2 antibiotics given to you. You have been given your first dose here in the emergency department. You have also been given a few doses of Ultram. Ultram is a narcotic-like medication, it can make you drowsy so do not drive or operate heavy machinery while on this medication. Please return if your abscess gets larger, becomes more painful, or for any new or worsening symptoms. ABSCESS: You have an abscess (boil). This a pus-forming infection, usually due to staph. Some boils may be left to drain on their own, but most require lancing. From the time the tender lump first appears, it may be three or four days before the abscess is ready to pedro. Local heat and rest help at this stage of treatment. An antibiotic may prevent spread of the infection. Once the abscess is opened, packing may be placed into it. This is done so pus is not sealed inside by premature closure of the cavity. The packing will be removed at your follow-up visit or you may be advised to remove it yourself at home. Sometimes this packing must be replaced a few times during healing. The wound will heal with surprisingly little scar. Depending on the size and location of an abscess, healing can take one to four weeks. You may shower and wash the area around the incision site two or three times a day. Antibiotics may be prescribed, but are usually not necessary after an abscess has been drained. If you develop fever, chills, worsening pain, or increasing swelling in the area, call the doctor or return immediately. POST INCISION AND DRAINAGE: You have had an incision made to allow drainage of an abscess. The incision must remain open so that pus and debris can drain from the wound. If the abscess cavity is large, packing is placed. This keeps the tissues from collapsing and trapping pus inside, while the body shrinks the cavity. The packing may need to be replaced every day or two. The physician will instruct you on the packing. Keep a bulky dressing over the area. Replace it if it becomes saturated with blood or pus. Do not disturb the packing (if present). You may shower and cleanse the area with gentle soap and warm water two or three times a day. Local warmth may be soothing, and may promote faster healing. Return if you develop high fever or chills, or if you note spreading redness, increasing swelling, or increasing tenderness. ORAL NARCOTIC MEDICATION: You have been given a prescription for pain control. This medication is a narcotic. It's best taken with food, as nausea can result if taken on an empty stomach. Don't operate machinery or drive within six hours of taking this medication. Do not combine this medicine with alcohol, or with any medication which can cause sedation (such as cold tablets or sleeping pills) unless you get permission from the physician. Narcotics tend to cause constipation. If possible, drink plenty of fluids and eat a diet high in fiber and fruits. CEPHALEXIN: The antibiotic you've been prescribed is a member of the cephalosporin class. This type of antibiotic covers a wide variety of infections, including those of the skin, lungs, and urinary tract. It's useful for staph infections. This antibiotic is slightly similar to the penicillin family. In rare cases, a person who is allergic to penicillin will also be allergic to this medication. If you have had a severe allergic reaction to penicillin, and have not taken this antibiotic since that time, notify your doctor. Antibiotics which cover many germs ("broad spectrum" antibiotics) are more likely to cause diarrhea or "yeast" infections. Women prone to vaginal yeast problems may suffer an attack after taking this antibiotic. In infants, oral thrush (white spots "stuck" on the cheek) or yeast diaper rash may result. See your doctor if these problems occur. Call at once if you develop itching, hives, shortness of breath, or lightheadedness. TRIMETHOPRIM-SULFA: You have been given a prescription for trimethoprim-sulfa (TMS, Septra, Bactrim). This is a combination antibiotic of the sulfa class, often used for urinary tract infections, middle ear infections, bronchitis, shigella intestinal infection, and Pneumocystis pneumonia. TMS is usually well-tolerated. Occasional side effects include nausea and decreased appetite. Septra is not recommended for infants less than two months of age. Do not take this medication if you have experienced severe side effects or allergy to sulfa medicine. You should stop this medicine at once and contact your physician if you develop any rash, joint pain, shortness of breath, bruising, or jaundice (yellow color in the skin), or if you develop any other new or unusual symptoms. FOLLOW-UP CARE: Most simple abscesses will not require a follow up visit. If you had packing placed in the abscess, remove it as instructed by the physician. If you have been referred to a physician for follow-up care, call the physicians office for an appointment as you were instructed or within the next two days. If you experience worsening or a significant change in your symptoms, return to the Emergency Department at any time for re-evaluation. Prescriptions: Tramadol HCl [Ultram 50 mg Tablet] 50 mg PO Q6HP PRN 3 Days #12 tablet PRN Reason: Sulfamethoxazole/Trimethoprim [Bactrim Ds Tablet] 1 each PO BID 7 Days #14 tablet Cephalexin Monohydrate [Keflex 500 mg Capsule] 500 mg PO Q6H 7 Days #28 capsule Forms: Return to Work Referrals: [facility] [Outside] - Follow up as needed
[2019-05-14] MEDS ORDERED: TRAMADOL HCL 50 MG TABLET PO ONE (10:49)
[2019-05-14] MEDS ORDERED: CEPHALEXIN 500 MG CAPSULE PO ONE (10:50)
[2019-05-14] MEDS ORDERED: SULFAMETHOXAZOLE/TRIMETHOPRIM 800-160 MG TABLET PO ONE (10:50)
[2019-05-14 11:24] VITALS: BP 121/75
== END 2019-05-14 11:23 | disposition home or self-care (01) ==
LOC: ER 09:37
PROC: 0H9BXZZ Drainage of Right Upper Arm Skin, External Approach (ICD-10-PCS; principal; 2019-05-14)
DX: L02.411 Cutaneous abscess of right axilla (principal); F17.210 Nicotine dependence, cigarettes, uncomplicated; Z86.14 Personal history of Methicillin resistant Staphylococcus aureus infection; J45.909 Unspecified asthma, uncomplicated
CPT/HCPCS: 99283

== ENCOUNTER 2020-04-21 08:30 | Emergency (ER) | payer SELFPAY ==
[2020-04-21] MEDS ORDERED: LIDOCAINE 2% INJ (20 MG/ML) 20 ML MDV INJ ONE (11:17)
[2020-04-21] MEDS ORDERED: OXYCODONE-ACETAMINOPHEN 5-325 MG TABLET PO ONE (11:18)
--- NOTE | 2020-04-21 11:23 | ER Document Report ---
ED Skin Rash/Insect Bite/Abscs - General Chief Complaint: Abscess Stated Complaint: KNEE PAIN, ABCSESS ON KNEE Time Seen by Provider: 04/21/20 10:08 Notes: 34-year-old man presenting to the emergency department with a 2-day history of a area of pain and swelling on the right knee. He has had a history of MRSA in the past also had boils/abscesses in the past. He is not diabetic denies fever. TRAVEL OUTSIDE OF THE [place] IN LAST 30 DAYS: No - Related Data Allergies/Adverse Reactions: hydrocodone bitartrate [From Vicodin] Allergy (Mild, Verified 05/14/19 09:56) upset stomach/hives/rash Past Medical History - Social History Smoking Status: Current Every Day Smoker Frequency of alcohol use: None Drug Abuse: None Family History: Reviewed & Not Pertinent Pulmonary Medical History: Reports: Hx Asthma Denies: Hx Tuberculosis Renal/ Medical History: Denies: Hx Peritoneal Dialysis Musculoskeletal Medical History: Reports Hx Musculoskeletal Trauma - Facial bone fractures Skin Medical History: Reports Hx Cellulitis, Reports Hx MRSA Traumatic Medical History: Reports: Hx Fractures - Facial bones Infectious Medical History: Reports: Hx MRSA Past Surgical History: Reports: Hx Oral Surgery, Hx Orthopedic Surgery - right shoulder - Immunizations Immunizations up to date: No Hx Diphtheria, Pertussis, Tetanus Vaccination: No Review of Systems - Review of Systems Notes: Constitutional: Negative for fever. HENT: Negative for sore throat. Eyes: Negative for visual changes. Cardiovascular: Negative for chest pain. Respiratory: Negative for shortness of breath. Gastrointestinal: Negative for abdominal pain, vomiting or diarrhea. Genitourinary: Negative for dysuria. Musculoskeletal: Negative for back pain. Skin: Right knee abscess Neurological: Negative for headaches, weakness or numbness. 10 point ROS negative except as marked above and in HPI. Physical Exam - Vital signs Vitals: Temp Pulse Resp BP Pulse Ox 98.0 F 86 16 137/68 H 100 04/21/20 08:59 04/21/20 08:59 04/21/20 08:59 04/21/20 08:59 04/21/20 08:59 - Notes Notes: PHYSICAL EXAMINATION: Physical Exam: General: Well-nourished well-developed 4-year-old male in no acute distress HEENT: NC/AT, pupils equal round and reactive to light, MM moist,nares clear, oropharynx clear, airway patent Neck: supple, no adenopathy, no masses. Good range of motion Lungs: clear, no wheezing, no rales no rhonchi CVS: Regular rate and rhythm no murmur gallop or rub Abdomen: Soft, active, nontender, no masses, no hepatosplenomegaly Ext: Right knee with a 3 centimeter area of induration with a central area of fluctuance/firm, tenderness to palpation. Right knee, good range of motion and no joint involvement Neuro: Alert and responsive, moving all 4 extremities on command, cranial nerves intact, no focal findings Skin: Intact no open lesions, no rash PSYCH: Normal mood, normal affect. Course - Vital Signs Vital signs: Temp Pulse Resp BP Pulse Ox 98.0 F 86 16 137/68 H 100 04/21/20 08:59 04/21/20 08:59 04/21/20 08:59 04/21/20 08:59 04/21/20 08:59 Procedures - Incision and Drainage Right Knee Time completed: 12:01 Type: Simple Anesthetic type: 1% Lidocaine w/epi, 2% Lidocaine mL's of anesthetic: 4 Blade size: 11 I&D procedure: Betadine prep applied Incision Method: Incision made by scalpel - 11 Amount/type of drainage: 2 Notes: 04/21/20 12:17 Incision and drainage of the right knee abscess was performed, a wound culture was obtained. Discharge - Discharge Clinical Impression: Abscess of right knee Condition: Good Disposition: HOME, SELF-CARE Instructions: Trimethoprim-Sulfa ([facility]) Additional Instructions: You were seen in the emergency department today with a abscess on the right knee area. An incision and drainage was performed along with culture of the wound. You are given prescriptions for antibiotics, Bactrim and a few tablets of pain medication. Please change the dressing daily please take the antibiotics as prescribed and follow-up as needed HOME CARE INSTRUCTIONS & INFORMATION: Thank you for choosing us for your medical needs. We hope you're satisfied with the care you received. After you leave, you must properly care for your problem and, at the same time, observe its progress. Any condition can change. Some illnesses can change rapidly over hours or days. If your condition worsens, return to the Emergency Department or see your physician promptly. ABOUT YOUR X-RAYS AND EKG'S: If you had an EKG or X-rays taken, they have been read by the Emergency Physician. The X-rays and EKG's will also be read by a Radiologist or Road Cleaner within 24 hours. If discrepancies are noted, you will be notified by telephone. Please be certain the ED has a correct telephone number & address where you can be reached. Also, realize that some fractures or abnormalities do not show up on initial X-rays. If your symptoms continue, see your physician. ABOUT YOUR LABORATORY TEST: If you had laboratory tests, the results have been reviewed by the Emergency Physician. Some test results (for example cultures) may not be available for several days. You will be contacted if any test result shows you need additional treatment. Please be certain the ED has a correct telephone number and address where you can be reached. ABOUT YOUR MEDICATIONS: You will receive instructions on how to take your medicine on the prescription label you receive. Additional information may be provided by the Pharmacy. If you have questions afterwards, call the ED for clarification or further instructions. Some prescribed medications may cause drowsiness. Do not perform tasks such as driving a car or operating machinery without consulting your Pharmacist. If you feel you need a refill of pain medication, your condition will need re-evaluation. Please do not call for a refill of any medication. ABOUT YOUR SIGNATURE: Signature of this document acknowledges to followin. Understanding that you received emergency treatment and that you may be released before al medical problems are known or treated. Please be certain the ED has a correct phone number & address where you can be reached. 2. Acknowledgement that you will arrange for follow-up care as recommended. 3. Authorization for the Emergency Physician to provide information to your follow-up Physician in order to maximize your care. AT ANY TIME, IF YOUR SYMPTOMS CHANGE SIGNIFICANTLY OR WORSEN OR YOU DEVELOP NEW SYMPTOMS, RETURN TO THE EMERGENCY DEPARTMENT IMMEDIATELY FOR RE-EVALUATION. OUR GOAL IS TO PROVIDE EXCELLENT MEDICAL CARE! WE HOPE THAT WE HAVE MET YOUR EXPECTATIONS DURING YOUR EMERGENCY DEPARTMENT VISIT AND THAT YOU FEEL YOU HAVE RECEIVED EXCELLENT CARE! Prescriptions: Sulfamethoxazole/Trimethoprim [Bactrim Ds Tablet] 1 tab PO BID #20 tablet Oxycodone HCl/Acetaminophen [Percocet 5-325 mg Tablet] 1 tab PO Q6 #7 tablet
[2020-04-21] MEDS ORDERED: MORPHINE SULFATE 10 MG/ML INJ IV ONE (12:35)
[2020-04-21] MEDS ORDERED: HEPARIN SODIUM,PORCINE/D5W 25,000 UNIT/250 ML RTUINJ IV PRN (12:37)
[2020-04-21] MEDS ORDERED: HEPARIN SOD (PORCINE) 1,000 UNIT/ML 10 ML VIAL IV ONE (12:37)
[2020-04-21 13:04] VITALS: BP 118/77
== END 2020-04-21 13:15 | disposition home or self-care (01) ==
LOC: ER 08:30
PROC: 0H9KXZZ Drainage of Right Lower Leg Skin, External Approach (ICD-10-PCS; principal; 2020-04-21)
DX: L02.415 Cutaneous abscess of right lower limb (principal); F17.200 Nicotine dependence, unspecified, uncomplicated; Z88.8 Allergy status to other drugs, medicaments and biological substances; J45.909 Unspecified asthma, uncomplicated
CPT/HCPCS: 99285; 87070; 87205; 87075; 87077; 87186; 10060; J3490